=== PATIENT | female | born 1995 | race Caucasian/White ===

== ENCOUNTER → 2020-08-24 | Outpatient (CLI) | payer BC ==
--- NOTE | 2020-08-25 09:24 | US ---
EXAMINATION TYPE: US OB >= 14 wk fetus DATE OF EXAM: 08/24/2020 COMPARISON: None CLINICAL HISTORY: O36.63X0 Maternal care for excessive growth,Growth. TECHNIQUE: Transabdominal (TA) GESTATIONAL AGE / DATING Physician Established: (36 weeks/2 days) EDC: 09/19/2020 Dates by Current Scan: (36 weeks/5 days) EDC: 09/16/2020 Beta HCG (if available): Not available at this time SURVEY IUP: Single PLACENTA: Posterior PREVIA: No Previa AMBROSE: 15.6 cm Normal CERVICAL LENGTH (transabdominal: norm > 3.0cm): 3.0 cm BIOMETRY PRESENTATION: Vertex BPD: 9.1 cm 37 weeks / 0 days HC: 32.9 cm 37 weeks / 3 days AC: 32.4 cm 36 weeks / 3 days FL: 7.0 cm 36 weeks / 0 days ESTIMATED WEIGHT IN GRAMS: 2926 grams ESTIMATED WEIGHT IN LBS/OZ: 6 lbs. 7 oz. WEIGHT PERCENTAGE BASED ON ESTABLISHED DATES: 56% HC/AC: 1.0 Normal FL/AC: 22% Normal HEART RATE: 150 bpm RHYTHM: Normal Single live IUP measuring 36 weeks 5 days. IMPRESSION: 1. Single images and gestation estimated at 36 weeks 5 days gestation based on current ultrasound leslie surements. Cardiac activity measures 150 bpm. 2. Estimated weight is [address] the fetus in the 56th percentile. 3. Estimated date of confinement based on current measurements is 09/16/2020. Correlate this with the physician established EDC of 09/19/2020.
== END | disposition home or self-care (01) ==
LOC: RADUSWWP 15:38
PROVIDERS: ATTEND Obstetrics & Gynecology
DX: O36.63X0 Maternal care for excessive fetal growth, third trimester, not applicable or unspecified (principal); Z3A.36 36 weeks gestation of pregnancy
CPT/HCPCS: 76805

== ENCOUNTER 2020-09-13 22:18 | Inpatient (IN) | payer BC ==
[2020-09-13] MEDS ORDERED: METHYLERGONOVINE 0.2 MG/ML 1 ML AMP IM PRN (23:01)
[2020-09-13] MEDS ORDERED: LIDOCAINE 0.5% (PF) 5 MG/ML (50 ML SDV) SQ PRN (23:01)
[2020-09-13] MEDS ORDERED: CARBOPROST TROMETHAMINE 250 MCG/ML 1 ML AMP IM PRN (23:01)
[2020-09-13] MEDS ORDERED: OXYTOCIN 10 UNIT/ML 1 ML VIAL IM PRN (23:01)
[2020-09-13] MEDS ORDERED: TERBUTALINE 1 MG/ML VIAL SQ PRN (23:01)
[2020-09-13] MEDS: LACTATED RINGERS 1,000 ML IV SCH (23:10)
[2020-09-13 23:22] LABS: Basophils % (A) 0 %; Eosinophils # (A) 0.1 k/uL (0-0.7); Eosinophils % (A) 1 %; HCT 31.3 % (34.0-46.0); HGB 10.5 gm/dL (11.4-16.0); Lymphocytes # (A) 1.5 k/uL (1.0-4.8); Lymphocytes % (A) 16 %; MCH 28.5 pg (25.0-35.0); MCHC 33.5 g/dL (31.0-37.0); MCV 85.2 fL (80.0-100.0); Mean Platelet Volume 10.6; Monocytes # (A) 0.6 k/uL (0-1.0); Monocytes % (A) 6 %; Neutrophils # (A) 6.7 k/uL (1.3-7.7); Neutrophils % (A) 73 %; Platelet Count 129 k/uL (150-450); RBC 3.68 m/uL (3.80-5.40); RDW 13.4 % (11.5-15.5); WBC 9.1 k/uL (3.8-10.6)
--- NOTE | 2020-09-13 23:38 | P.HPOB ---
History of Present Illness H&P Date: 09/13/20 Chief Complaint: Contractions This patient is a 25-year-old 4 para 1 female estimated date of confinement 09/19/2020 estimated gestational age 39 and one sevenths weeks who presents to labor and delivery with complaints of contractions began earlier today. Patient's care is per Dr. Ibarra and is complicated by heavy daily substance abuse (marijuana). Patient transferred care at approximately 34 weeks. Her previous physician had sent her to maternal- medicine due to the amount of marijuana she was smoking on a daily basis. MFM evaluation there was negative for anatomical defects. Patient was counseled to discontinue marijuana use but has continued to use it daily through the entirety of the . Patient otherwise appears to be otherwise uncomplicated. Review of Systems Genitourinary: Reports Menstruation: Reports amenorrhea Past Medical History Past Medical History: No Reported History History of Any Multi-Drug Resistant Organisms: None Reported Additional Past Surgical History / Comment(s): LEEP excision of the cervix July 2019 Past Anesthesia/Blood Transfusion Reactions: No Reported Reaction Past Psychological History: Bipolar, Depression Smoking Status: Never smoker Past Alcohol Use History: None Reported Past Drug Use History: Marijuana Medications and Allergies Allergies Allergy/AdvReac Type Severity Reaction Status Date / Time fluoxetine [From Prozac] Allergy Rash/Hives Verified 09/13/20 22:32 ibuprofen Allergy Rash/Hives Verified 09/13/20 22:32 Exam Intake and Output 09/13/20 09/13/20 09/14/20 14:59 22:59 06:59 Other: Weight 85.729 kg - OBG Physical Exam Abdomen: bowel sounds normal, no diffuse tenderness, no bruit present, no guarding noted, no hepatomegaly, no splenomegaly, no mass Vulva: both: normal Cervix: no lesion (Cervix is 4 completely effaced -2 station.), no discharge Uterus: enlarged Results blood work shows she is A positive, rubella immune, hepatitis B negative, RPR nonreactive, HIV negative, Glucola was 85, level III ultrasound was normal, B strep was negative, most recent ultrasound done approximately 3 weeks ago showed estimated weight at 6 lbs. 7 oz. Result Diagrams: 09/13/20 23:05 Abnormal Lab Results - Last 24 Hours (Table) 09/13/20 Range/Units 23:05 RBC 3.68 L (3.80-5.40) m/uL Hgb 10.5 L (11.4-16.0) gm/dL Hct 31.3 L (34.0-46.0) % Plt Count 129 L (150-450) k/uL Assessment and Plan Assessment: This is a 25-year-old 4 para 1 female estimated gestational age 39 and one sevenths weeks who presents to labor and delivery in active labor. Patient's daily heavy user of marijuana. Plan is anticipate vaginal delivery and will need a social secretary consult . (1) 39 weeks gestation of Current Visit: Yes Status: Acute Code(s): Z3A.39 - 39 WEEKS GESTATION OF SNOMED Code(s): 00756617 (2) Substance abuse affecting in third trimester, antepartum Current Visit: Yes Status: Chronic Code(s): O99.323 - DRUG USE COMPLICATING , THIRD TRIMESTER SNOMED Code(s): 12580205
[2020-09-13 23:49] LABS: Amphetamine Screen,Urine Not Detected (NotDetected); Benzodiazepines Screen,Urine Not Detected (NotDetected); Cocaine Screen,Urine Not Detected (NotDetected); Opiate Screen,Urine Not Detected (NotDetected); Phencyclidine Screen,Urine Not Detected (NotDetected)
[2020-09-13 23:50] LABS: Barbiturate Screen,Urine Not Detected (NotDetected); Methadone Screen, Urine Not Detected (NotDetected); Oxycodone Screen, Urine Not Detected (NotDetected); Tricyclic Antidepressant,Urine Not Detected (NotDetected); Urn Cannabinoid Scrn Detected (NotDetected)
[2020-09-13] MEDS ORDERED: SODIUM CHLORIDE 0.9% 100 ML BAG ONE (23:53)
[2020-09-13] MEDS ORDERED: fentaNYL (PF) 50 MCG/ML 5 ML AMP ONE (23:53)
[2020-09-13] MEDS ORDERED: ROPIVACAINE 5MG/ML 20ML VIAL ONE (23:53)
[2020-09-14] MEDS: LACTATED RINGERS 1,000 ML IV SCH (00:25)
--- NOTE | 2020-09-14 02:13 | P.PROBDLV ---
Vaginal Delivery Note - . Vaginal Delivery Note: Normal spontaneous vaginal delivery viable male infant Apgars 9 and 9 delivery time was 0200 hours. Please see dictated H&P for intimate details of this patient's admission. Brief summary this is a 25-year-old 4 para 1 female 39 and one sevenths weeks gestation is admitted to labor and delivery for complaints of contractions. On admission patient is 4 cm dilated and completely effaced. Patient is artificial rupture membranes for clear fluid. She does request an epidural for pain control and this is given. Patient quickly progresses thereafter gets to complete. Patient pushes the head to the perineum posterior perineum was supported. We have controlled delivery of the infant's head over the intact perineum. The placenta is straight occiput anterior presentation. Mouth and nares are bulb suctioned. There is no evidence of nuchal cord. Patient continues to push uncontrollably and delivers rest of this 's body. This is a vigorous, viable male Apgars are 9 and 9 delivery time is 0200 hours. After delivery of the the umbilical cord is doubly clamped and cut. It appears to be trivascular. The placenta is then spontaneously delivered intact. Inspection of perineum shows no lacerations except for a superficial left periurethral laceration that does not require repair. Infant and mother are stable in delivery room. There are no complications. All counts correct 3. donor services team leader consultation will be obtained.
[2020-09-14] MEDS ORDERED: ZOLPIDEM 5 MG TAB PO PRN (02:15)
[2020-09-14] MEDS ORDERED: diphenhydrAMINE 25 MG CAP PO PRN (02:15)
[2020-09-14] MEDS ORDERED: SIMETHICONE 80 MG CHEWABLE PO PRN (02:15)
[2020-09-14] MEDS ORDERED: HYDROCORTISONE 2.5% RECTAL CREAM 30 GM TUBE RECTAL PRN (02:15)
[2020-09-14] MEDS ORDERED: diphenhydrAMINE 50 MG/ML 1 ML VIAL IVP PRN (02:15)
[2020-09-14] MEDS ORDERED: BENZOCAINE/MENTHOL SPRAY 1 GM/SPRAY AEROSOL TOPICAL PRN (02:15)
[2020-09-14] MEDS ORDERED: LANOLIN CREAM 5 GM TUBE TOPICAL PRN (02:15)
[2020-09-14] MEDS ORDERED: IBUPROFEN 600 MG TAB PO SCH (02:15)
[2020-09-14] MEDS ORDERED: OXYTOCIN 30 UNITS/500 ML NS 30 UNIT in SALINE 1 500ML.BAG IV SCH (02:15)
[2020-09-14] MEDS ORDERED: bisacodyL 10 MG SUPP RECTAL PRN (02:15)
[2020-09-14] MEDS: ACETAMINOPHEN TAB 325 MG TAB PO PRN ×2 (05:41→20:47)
[2020-09-14] MEDS: SENNOSIDES-DOCUSATE SODIUM 1 EACH TAB PO SCH ×2 (09:15→20:47)
[2020-09-15] MEDS: ACETAMINOPHEN TAB 325 MG TAB PO PRN (07:24)
[2020-09-15] MEDS: SENNOSIDES-DOCUSATE SODIUM 1 EACH TAB PO SCH (07:25)
--- NOTE | 2020-09-15 07:53 | P.DS ---
Providers Date of admission: 09/13/20 22:49 Expected date of discharge: 09/15/20 Attending physician: Timoteo Ibarar Primary care physician: Stated None Hospital Course: Patient is doing very well day 1. She is ambulating, voiding and she is tolerating her diet. She voices no other complaints. Vital signs are stable and afebrile. Heart regular, lungs clear, extremities are without pain. Abdomen is soft, uterus is firm, and lochia is reported be light. Assessment day 1. Plan discharged home follow up with me in 6 weeks. Discharge instructions were thoroughly reviewed and all other questions are answered for her prior to her discharge. Patient Condition at Discharge: Good Plan - Discharge Summary Follow up Appointment(s)/Referral(s): Timoteo Ibarra DO [Doctor of Osteopathic Medicine] - 6 Weeks Activity/Diet/Wound Care/Special Instructions: Lifting, limit stairs and driving, and pelvic rest. If any high temperatures, heavy bleeding, or severe pain call my office Discharge Disposition: HOME SELF-CARE
[2020-09-15 08:25] LABS: Basophils # (A) 0.1 k/uL (0-0.2); Basophils % (A) 0 %; Eosinophils # (A) 0.2 k/uL (0-0.7); Eosinophils % (A) 2 %; HCT 36.9 % (34.0-46.0); HGB 11.6 gm/dL (11.4-16.0); Lymphocytes # (A) 2.4 k/uL (1.0-4.8); Lymphocytes % (A) 21 %; MCH 27.7 pg (25.0-35.0); MCHC 31.6 g/dL (31.0-37.0); MCV 87.6 fL (80.0-100.0); Mean Platelet Volume 8.9; Monocytes # (A) 0.8 k/uL (0-1.0); Monocytes % (A) 7 %; Neutrophils # (A) 8.2 k/uL (1.3-7.7); Neutrophils % (A) 69 %; Platelet Count 215 k/uL (150-450); RBC 4.21 m/uL (3.80-5.40); RDW 13.2 % (11.5-15.5); WBC 11.9 k/uL (3.8-10.6)
[2020-09-15 09:17] VITALS: BP 128/73; PULSE 65; RESP 18; TEMP 97.6
== END 2020-09-15 10:35 | disposition home or self-care (01) | DRG 807 ==
LOC: FBPOP 22:18 → 4FBP 22:49
PROVIDERS: ADMIT Obstetrics & Gynecology; ATTEND Obstetrics & Gynecology
PROC: 10E0XZZ Delivery of Products of Conception, External Approach (ICD-10-PCS; principal; 2020-09-14)
PROC: 10907ZC Drainage of Amniotic Fluid, Therapeutic from Products of Conception, Via Natural or Artificial Opening (ICD-10-PCS; 2020-09-14)
DX: O99.324 Drug use complicating childbirth (principal); Z37.0 Single live birth; F12.10 Cannabis abuse, uncomplicated; O99.344 Other mental disorders complicating childbirth; F31.9 Bipolar disorder, unspecified; Z3A.39 39 weeks gestation of pregnancy; O71.82 Other specified trauma to perineum and vulva
CPT/HCPCS: 59025; 80306; 85025; 86850; 86900; 86901; 88307; 99213

== ENCOUNTER 2022-10-28 06:00 | Inpatient (IN) | payer BC, OTHER ==
[2022-10-28] MEDS ORDERED: LIDOCAINE 0.5% (PF) 5 MG/ML (50 ML SDV) SQ PRN (06:26)
[2022-10-28] MEDS ORDERED: TERBUTALINE 1 MG/ML VIAL SQ PRN (06:26)
[2022-10-28] MEDS ORDERED: OXYTOCIN 10 UNIT/ML 1 ML VIAL IM PRN (06:26)
[2022-10-28] MEDS ORDERED: CARBOPROST TROMETHAMINE 250 MCG/ML 1 ML AMP IM PRN (06:26)
[2022-10-28] MEDS ORDERED: miSOPROStoL 200 MCG TAB PO PRN (06:26)
[2022-10-28] MEDS ORDERED: METHYLERGONOVINE 0.2 MG/ML 1 ML AMP IM PRN (06:26)
[2022-10-28] MEDS ORDERED: TRANEXAMIC ACID IN NACL,ISO-OS 1,000 MG in EMPTY BAG 1 BAG IV PRN (06:26)
[2022-10-28] MEDS ORDERED: OXYTOCIN 30 UNITS/500 ML NS 30 UNIT in SALINE 1 500ML.BAG IV SCH (06:30)
[2022-10-28] MEDS: LACTATED RINGERS 1,000 ML IV SCH ×2 (06:39→14:32)
[2022-10-28 07:05] LABS: Basophils # (A) 0.1 k/uL (0-0.2); Basophils % (A) 0 %; Eosinophils # (A) 0.2 k/uL (0-0.7); Eosinophils % (A) 2 %; HGB 9.1 gm/dL (11.4-16.0); Hypochromasia Slight; Lymphocytes % (A) 19 %; MCH 25.4 pg (25.0-35.0); MCHC 32.4 g/dL (31.0-37.0); MCV 78.4 fL (80.0-100.0); Mean Platelet Volume 7.8; Monocytes % (A) 9 %; Neutrophils # (A) 7.2 k/uL (1.3-7.7); Neutrophils % (A) 67 %; Platelet Count 301 k/uL (150-450); Poikilocytosis Slight; RBC 3.57 m/uL (3.80-5.40); RDW 14.4 % (11.5-15.5); WBC 10.7 k/uL (3.8-10.6)
--- NOTE | 2022-10-28 07:53 | P.HPOB ---
History of Present Illness H&P Date: 10/28/22 Chief Complaint: induction of labor 27-year-old presents at 39 weeks and 2 days for induction of labor. Her cervix is 2 cm dilated, 70% effaced, and -2 station. She is errol irregularly. heart tones 135 with moderate variability and reactive. Review of Systems All systems: negative Constitutional: Denies chills, Denies fever Eyes: denies blurred vision, denies pain Ears, nose, mouth and throat: Denies headache, Denies sore throat Cardiovascular: Denies chest pain, Denies shortness of breath Respiratory: Denies cough Gastrointestinal: Denies abdominal pain, Denies diarrhea, Denies nausea, Denies vomiting Genitourinary: Denies dysuria, Denies hematuria Musculoskeletal: Denies myalgias Integumentary: Denies pruritus, Denies rash Neurological: Denies numbness, Denies weakness Psychiatric: Denies anxiety, Denies depression Endocrine: Denies fatigue, Denies weight change Past Medical History Past Medical History: No Reported History Additional Past Medical History / Comment(s): She has had 2 previous vaginal deliveries. History of Any Multi-Drug Resistant Organisms: None Reported Additional Past Surgical History / Comment(s): LEEP excision of the cervix July 2019 Past Anesthesia/Blood Transfusion Reactions: No Reported Reaction Past Psychological History: Bipolar, Depression Smoking Status: Never smoker Past Alcohol Use History: None Reported Past Drug Use History: None Reported - Past Family History Father Family Medical History: No Reported History Medications and Allergies Home Medications Medication Instructions Recorded Confirmed Type Albuterol Inhaler [Ventolin Hfa 1 - 2 puff INHALATION Q6H PRN 10/28/22 10/28/22 History Inhaler] Famotidine [Pepcid] 20 mg PO DAILY 10/28/22 10/28/22 History Omeprazole 40 mg PO DAILY 10/28/22 10/28/22 History Pediatric Multivit No.203/Iron 18 mg PO DAILY 10/28/22 10/28/22 History [Flintstones with Iron Tab Chew] Allergies Allergy/AdvReac Type Severity Reaction Status Date / Time fluoxetine [From Prozac] Allergy Rash/Hives Verified 10/28/22 06:25 ibuprofen Allergy Rash/Hives Verified 10/28/22 06:25 naproxen Allergy Rash/Hives Verified 10/28/22 06:25 Exam Osteopathic Statement: *. No significant issues noted on an osteopathic structural exam other than those noted in the History and Physical/Consult. Vital Signs Temp Pulse Resp BP Pulse Ox 10/28/22 06:47 96.9 F L 125 H 16 128/72 97 Intake and Output 10/27/22 10/28/22 10/28/22 22:59 06:59 14:59 Other: Weight 97.069 kg Heart: Regular rate and rhythm Lungs: Clear to auscultation bilaterally Abdomen: Soft, nontender Extremities: Negative Homans sign Results Result Diagrams: 10/28/22 06:32 Abnormal Lab Results - Last 24 Hours (Table) 10/28/22 Range/Units 06:32 WBC 10.7 H (3.8-10.6) k/uL RBC 3.57 L (3.80-5.40) m/uL Hgb 9.1 L (11.4-16.0) gm/dL Hct 28.0 L (34.0-46.0) % MCV 78.4 L (80.0-100.0) fL Assessment and Plan (1) Encounter for induction of labor Current Visit: Yes Status: Acute Code(s): Z34.90 - ENCNTR FOR SUPRVSN OF NORMAL , UNSP, UNSP TRIMESTER SNOMED Code(s): 708240459 Plan: 1. Induction of labor with amniotomy and Pitocin 2. Anticipate normal vaginal delivery
[2022-10-28] MEDS ORDERED: fentaNYL (PF) 50 MCG/ML 5 ML AMP ONE (10:26)
[2022-10-28] MEDS ORDERED: ROPIVACAINE 5 MG/ML 20 ML AMPULE ONE (10:26)
[2022-10-28] MEDS ORDERED: SODIUM CHLORIDE 0.9% 100 ML BAG ONE (10:26)
[2022-10-28] MEDS ORDERED: SIMETHICONE 80 MG CHEWABLE PO PRN (14:35)
[2022-10-28] MEDS ORDERED: BENZOCAINE/MENTHOL SPRAY 1 GM/SPRAY AEROSOL TOPICAL PRN (14:35)
[2022-10-28] MEDS ORDERED: ZOLPIDEM 5 MG TAB PO PRN (14:35)
[2022-10-28] MEDS ORDERED: diphenhydrAMINE 50 MG/ML 1 ML VIAL IVP PRN ×2 (14:35)
[2022-10-28] MEDS ORDERED: HYDROCORTISONE 2.5% RECTAL CREAM 30 GM TUBE RECTAL PRN (14:35)
[2022-10-28] MEDS ORDERED: diphenhydrAMINE 50 MG CAP PO PRN (14:35)
[2022-10-28] MEDS ORDERED: diphenhydrAMINE 25 MG CAP PO PRN (14:35)
[2022-10-28] MEDS ORDERED: LANOLIN CREAM 5 GM TUBE TOPICAL PRN (14:35)
[2022-10-28] MEDS: ACETAMINOPHEN TAB 325 MG TAB PO PRN ×2 (14:52→20:02)
--- NOTE | 2022-10-28 16:57 | P.PROBDLV ---
Vaginal Delivery Note - . Vaginal Delivery Note: 27-year-old presents at 39 weeks and 2 days for induction of labor. Her cervix is 2 cm dilated, 70% effaced, and -2 station. She is errol irregularly. heart tones 135 with moderate variability and reactive. Pitocin was started. Amniotomy performed at 7:30 AM and clear fluid noted. When she was uncomfortable she did get an epidural. Her cervix was completely dilated at 1359. She pushed, delivered a viable female infant over intact perineum under epidural anesthesia at 1404. Head delivered OA, anterior shoulder delivered gentle downward guidance for by posterior shoulder and rest of body. Nose and mouth bulb suctioned, cord clamped and cut, infant placed mother's abdomen. Apgars 9, 9, weight 7 lbs. 14 oz. Placenta delivered spontaneously, intact with three-vessel cord at 1408. Vagina, cervix, perineum inspected. First-degree midline laceration repaired with 3-0 Vicryl. Estimated blood loss 150 mL. Mother and baby in stable condition.
[2022-10-28] MEDS: SENNOSIDES-DOCUSATE SODIUM 1 EACH TAB PO SCH (20:02)
[2022-10-28 23:51] VITALS: RESP 16
[2022-10-29] MEDS: ACETAMINOPHEN TAB 325 MG TAB PO PRN ×3 (01:27→12:18)
[2022-10-29] MEDS: SENNOSIDES-DOCUSATE SODIUM 1 EACH TAB PO SCH (09:13)
--- NOTE | 2022-10-29 09:34 | P.DS ---
Providers Date of admission: 10/28/22 06:05 Expected date of discharge: 10/29/22 Attending physician: Tamara Addison Primary care physician: Stated None - Discharge Diagnosis(es) (1) Encounter for induction of labor Current Visit: Yes Status: Resolved (2) Status post normal vaginal delivery Current Visit: Yes Status: Acute Hospital Course: Patient presented for induction of labor. She underwent a normal vaginal delivery. course uncomplicated. She denies nausea, vomiting, chest pain, shortness of breath or calf pain. Patient will be discharged home day #1 in stable condition to follow-up with me in 6 weeks. Plan - Discharge Summary New Discharge Prescriptions: No Action Omeprazole 40 mg PO DAILY Albuterol Inhaler [Ventolin Hfa Inhaler] 1 - 2 puff INHALATION Q6H PRN PRN Reason: Shortness Of Breath Pediatric Multivit No.203/Iron [Flintstones with Iron Tab Chew] 18 mg PO DAILY Famotidine [Pepcid] 20 mg PO DAILY Discharge Medication List Albuterol Inhaler [Ventolin Hfa Inhaler] 1 - 2 puff INHALATION Q6H PRN 10/28/22 [History] Famotidine [Pepcid] 20 mg PO DAILY 10/28/22 [History] Omeprazole 40 mg PO DAILY 10/28/22 [History] Pediatric Multivit No.203/Iron [Flintstones with Iron Tab Chew] 18 mg PO DAILY 10/28/22 [History] Follow up Appointment(s)/Referral(s): Tamara Addison DO [Doctor of Osteopathic Medicine] - 12/12/22 10:45 am Discharge Disposition: HOME SELF-CARE
[2022-10-29 12:52] VITALS: BP 119/78; PULSE 105; TEMP 98.4
== END 2022-10-29 15:55 | disposition home or self-care (01) | DRG 560 ==
LOC: 4FBP 06:05
PROVIDERS: ADMIT Obstetrics & Gynecology; ATTEND Obstetrics & Gynecology
PROC: 10E0XZZ Delivery of Products of Conception, External Approach (ICD-10-PCS; principal; 2022-10-28)
PROC: 0HQ9XZZ Repair Perineum Skin, External Approach (ICD-10-PCS; 2022-10-28)
PROC: 10907ZC Drainage of Amniotic Fluid, Therapeutic from Products of Conception, Via Natural or Artificial Opening (ICD-10-PCS; 2022-10-28)
PROC: 3E033VJ Introduction of Other Hormone into Peripheral Vein, Percutaneous Approach (ICD-10-PCS; 2022-10-28)
DX: O70.0 First degree perineal laceration during delivery (principal); Z37.0 Single live birth; Z3A.39 39 weeks gestation of pregnancy
CPT/HCPCS: 85025; 86850; 86900; 86901

== ENCOUNTER → 2023-06-05 | Outpatient (CLI) | payer OTHER ==
[2023-06-05 14:14] LABS: INR 0.9 (<1.2); Partial Thromboplastin Time 25.4 sec (22.0-30.0); Prothrombin Time 10.5 sec (10.0-12.5)
[2023-06-05 17:07] LABS: % Iron Saturation 22.07 (12.00-45.00); ALT 16 U/L (8-44); AST 12 U/L (13-35); Albumin 4.6 g/dL (3.8-4.9); Albumin/Globulin Ratio 1.84 Ratio (1.60-3.17); Alkaline Phosphatase 78 U/L (41-126); BUN/Creat Ratio 15.86 Ratio (12.00-20.00); Blood Urea Nitrogen 11.1 mg/dL (9.0-27.0); Calcium 9.4 mg/dL (8.7-10.3); Carbon Dioxide 21.4 mmol/L (21.6-31.8); Chloride 104 mmol/L (96-109); Chol/HDL Ratio 4.03 Ratio; Ferritin 16.8 ng/mL (10.0-291.0); Globulin 2.5 g/dL (1.6-3.3); Glucose 110 mg/dL (70-110); Iron 81 UG/DL (50-170); LDL Cholesterol,Calculated 123.5 mg/dL (0.0-131.0); Magnesium 2.1 mg/dL (1.5-2.4); Phosphorus 3.4 mg/dL (2.4-5.1); Potassium 4.6 mmol/L (3.5-5.5); Sodium 139 mmol/L (135-145); Total Bilirubin 0.2 mg/dL (0.3-1.2); Total Iron Binding Capacity 367 UG/DL (228-460); Total Protein 7.1 g/dL (6.2-8.2)
[2023-06-05 17:30] LABS: Prealbumin 20.8 mg/dL (18.0-42.0)
[2023-06-06 12:12] LABS: Zinc, Serum 76 ug/dL (60-130)
[2023-06-07 06:24] LABS: Vitamin A 44 ug/dL (38-106)
[2023-06-07 07:19] LABS: Vit B1(Thiamine) 56 ug/L (38-122)
== END | disposition home or self-care (01) ==
LOC: LABWHC1 12:24
PROVIDERS: ATTEND Surgery Plastic and Reconstructive Surgery
DX: E89.1 Postprocedural hypoinsulinemia (principal); E66.01 Morbid (severe) obesity due to excess calories; D50.8 Other iron deficiency anemias; E44.0 Moderate protein-calorie malnutrition; E55.9 Vitamin D deficiency, unspecified; K91.2 Postsurgical malabsorption, not elsewhere classified; E44.1 Mild protein-calorie malnutrition; E45 Retarded development following protein-calorie malnutrition; K74.1 Hepatic sclerosis; N19 Unspecified kidney failure; T56.894A Toxic effect of other metals, undetermined, initial encounter; R94.31 Abnormal electrocardiogram [ECG] [EKG]; R00.0 Tachycardia, unspecified
CPT/HCPCS: 84255; 84134; 84425; 80061; 80053; 82607; 82728; 82525; 82746; 83540; 83550; 83735; 84100; 84443; 84590; 84630; 85027; 85610; 85730; 82306; 83970; 83036; 80307; 93005; 36415; G0480; 80323

== ENCOUNTER → 2023-06-09 | Outpatient (CLI) | payer OTHER ==
[2023-06-10 02:10] LABS: HCT 42.3 % (37.2-46.3); HGB 13.6 g/dL (12.0-15.0); MCH 29.2 pg (27.0-32.0); MCHC 32.2 g/dL (32.0-37.0); MCV 90.8 FL (80.0-97.0); Mean Platelet Volume 9.8 FL (9.5-12.2); NRBC Per 100 WBC 0 X 10*3/uL (0.00-0.01); Platelet Count 319 X 10*3/uL (140-440); RBC 4.66 X 10*6/uL (4.10-5.20); RDW 13.7 % (11.5-14.5); WBC 10.17 X 10*3/uL (4.50-10.00)
== END | disposition home or self-care (01) ==
LOC: LABWHC1 16:05
PROVIDERS: ATTEND Surgery Plastic and Reconstructive Surgery
DX: Z00.00 Encounter for general adult medical examination without abnormal findings (principal)
CPT/HCPCS: 36415; 85027

== ENCOUNTER → 2023-07-05 | Day surgery (SDC) | payer OTHER ==
[2023-06-29 12:37] VITALS: BMI 35.8
[~2023-07-05] MED LIST: LACTATED RINGERS 1,000 ML IV SCH; LIDOCAINE 1% (10MG/ML) FOR IV START INTRADERMA PRN; LIDOCAINE 1% INJ 10MG/ML (20 ML MDV) ONE; PROPOFOL 10 MG/ML 20 ML VIAL IV ONE
--- NOTE | 2023-07-05 07:53 | P.GSHP ---
History of Present Illness H&P Date: 07/05/23 CHIEF COMPLAINT: GERD HISTORY OF PRESENT ILLNESS: The patient is a 28-year-old female who presents reports gastroesophageal reflux disease. Upper endoscopy was offered for further evaluation and management. PAST MEDICAL HISTORY: Please see list. PAST SURGICAL HISTORY: Please see list. MEDICATIONS: Please see list. ALLERGIES: Please see list. SOCIAL HISTORY: No illicit drug use FAMILY HISTORY: No reports of Crohn disease or ulcerative colitis. REVIEW OF ORGAN SYSTEMS: CONSTITUTIONAL: No reports of fevers or chills. GI: Denies any blood in stools or constipation. PHYSICAL EXAM: VITAL SIGNS: Stable GENERAL: Well-developed and pleasant in no acute distress. HEENT: No scleral icterus. Extraocular movements grossly intact. Moist buccal mucosa. NECK: Supple without lymphadenopathy. CHEST: Unlabored respirations. Equal bilateral excursions. CARDIOVASCULAR: Regular rate and rhythm. Distal 2+ pulses. ABDOMEN: Soft, nondistended. MUSCULOSKELETAL: No clubbing, cyanosis, or edema. ASSESSMENT: 1. Gastroesophageal reflux disease PLAN: 1. Recommend proceeding with an upper endoscopy Past Medical History Past Medical History: Asthma, GERD/Reflux Additional Past Medical History / Comment(s): severe gerd. planning bariatric surgery, abnormal ekg done on 06-05-[address] sow-scheduled echo jul 29, hx of tachycardia at age 18,She has had 3 previous vaginal deliveries. seasonal allergies, mild asthma. History of Any Multi-Drug Resistant Organisms: None Reported Past Surgical History: Cholecystectomy Additional Past Surgical History / Comment(s): LEEP excision of the cervix July 2019 Past Anesthesia/Blood Transfusion Reactions: No Reported Reaction Smoking Status: Current every day smoker, Vaper - Past Family History Father History Unknown: Yes Family Medical History: No Reported History Additional Family Medical History / Comment(s): Barrette's esophagus Mother Family Medical History: No Reported History Medications and Allergies Home Medications Medication Instructions Recorded Confirmed Type Albuterol Inhaler [Ventolin Hfa 1 - 2 puff INHALATION Q6H PRN 10/28/22 06/29/23 History Inhaler] Omeprazole 40 mg PO DAILY PRN 10/28/22 06/29/23 History Ergocalciferol [Vitamin D2 (1250 50,000 unit PO WEEKLY 06/08/23 06/29/23 History Mcg = 00833 Iu)] Folic Acid 0.8 mg PO DAILY 06/08/23 06/29/23 History Allergies Allergy/AdvReac Type Severity Reaction Status Date / Time fluoxetine [[facility]] Allergy Rash/Hives Verified 06/29/23 12:51 ibuprofen Allergy Rash/Hives Verified 06/29/23 12:51 naproxen Allergy Rash/Hives Verified 06/29/23 12:51
[2023-07-05 11:01] VITALS: RESP 16; TEMP 96.9
--- NOTE | 2023-07-05 11:11 | P.PCN ---
Date of Procedure: 07/05/23 Description of Procedure: PREOPERATIVE DIAGNOSIS: Gastroesophageal reflux disease. Morbid obesity. POSTOPERATIVE DIAGNOSIS: Gastroesophageal reflux disease. Morbid obesity. Gastritis. OPERATION: Esophagogastroduodenoscopy with biopsies along the esophagus, antrum and duodenum SURGEON: Shannan Huang MD ANESTHESIA: MAC. INDICATIONS: The patient is a 28-year-old female who presents with reflux disease. Benefits and risks of the procedure were described. Informed consent was obtained. DESCRIPTION: The patient was brought into the endoscopy suite and laid in the left lateral decubitus position. An Olympus gastroscope was passed along the posterior oropharynx down to the distal esophagus where the squamocolumnar junction was encountered at 36 cm from the incisors. The stomach was entered and no bile reflux was found. Additional findings are listed below. Biopsies with cold forceps were obtained of the antrum. The first through third portion of the duodenum was examined. Retroflexion of the scope confirmed Hill grade 3 lower esophageal valve. The squamocolumnar junction demonstrated LA grade C erosive esophagitis. The stomach was desufflated. The patient tolerated the procedure well. FINDINGS: Squamocolumnar junction 36 cm from the incisors. Diaphragmatic hiatus at 36 cm. Hill grade 3 lower esophageal valve. LA grade C erosive esophagitis. Biopsies obtained Biopsies obtained of the duodenum. Chronic gastritis with biopsies obtained. RECOMMENDATIONS: Upper endoscopy as needed. Plan - Discharge Summary Discharge Rx Participant: No New Discharge Prescriptions: Continue Omeprazole 40 mg PO DAILY PRN PRN Reason: Heartburn Albuterol Inhaler [Ventolin Hfa Inhaler] 1 - 2 puff INHALATION Q6H PRN PRN Reason: Shortness Of Breath Folic Acid 0.8 mg PO DAILY Ergocalciferol [Vitamin D2 (1250 Mcg = 64746 Iu)] 50,000 unit PO WEEKLY Discharge Medication List Albuterol Inhaler [Ventolin Hfa Inhaler] 1 - 2 puff INHALATION Q6H PRN 10/28/22 [History] Omeprazole 40 mg PO DAILY PRN 10/28/22 [History] Ergocalciferol [Vitamin D2 (1250 Mcg = 64482 Iu)] 50,000 unit PO WEEKLY 06/08/23 [History] Folic Acid 0.8 mg PO DAILY 06/08/23 [History] Follow [facility]ment(s[facility] [facility] [place] [place] Patient Instructions/Handouts: GERD (Gastroesophageal Reflux Disease) (DC) Discharge Disposition: HOME SELF-CARE
[2023-07-05 11:27] VITALS: BP 100/58; PULSE 77
== END | disposition home or self-care (01) ==
LOC: ORWHC2ENDO 09:28
PROVIDERS: ATTEND Surgery Plastic and Reconstructive Surgery
DX: K29.50 Unspecified chronic gastritis without bleeding (principal); K21.00 Gastro-esophageal reflux disease with esophagitis, without bleeding; E66.01 Morbid (severe) obesity due to excess calories; J45.909 Unspecified asthma, uncomplicated; F17.290 Nicotine dependence, other tobacco product, uncomplicated; Z90.49 Acquired absence of other specified parts of digestive tract; Z88.6 Allergy status to analgesic agent; Z88.8 Allergy status to other drugs, medicaments and biological substances
CPT/HCPCS: 81025; 88305; 43239; J2001; J2704

== ENCOUNTER → 2023-07-19 | Outpatient (CLI) | payer BC, OTHER ==
[2023-07-19 15:50] VITALS: BP 121/85; PULSE 97; TEMP 98.2; BMI 35.8
--- NOTE | 2023-07-19 16:14 | P.BASOAP ---
Subjective Progress Note Date: 07/19/23 DATE OF SERVICE: 07/19/23 CHIEF COMPLAINT: Morbid obesity HISTORY OF PRESENT ILLNESS: Elana Urena is a 28-year-old female who comes with lifelong morbid obesity. She comes in looking into the gastric bypass. She continues to smoke. She has gastroesophageal reflux disease. She is undergoing medical supervised weight loss. She is also undergoing cardiac risk assessment. At height of 5 feet 3.75 inches, her ideal body weight is 140 pounds. She comes in 219 pounds. Her body mass index is 38.0. She is 79 pounds overweight. PAST MEDICAL HISTORY: 1. Morbid obesity due to excess calories 2. Body mass index of 35.8 3. Asthma 4. Gastroesophageal reflux disease PAST SURGICAL HISTORY: 1. Cholecystectomy 2. LEEP excision HOME MEDICATIONS: Home Medications Medication Instructions Recorded Confirmed Albuterol Inhaler [Ventolin Hfa 1 - 2 puff INHALATION Q6H PRN 10/28/22 07/19/23 Inhaler] Omeprazole 40 mg PO BID 10/28/22 07/19/23 Ergocalciferol [Vitamin D2 (1250 50,000 unit PO WEEKLY 06/08/23 07/19/23 Mcg = 18409 Iu)] Folic Acid 0.8 mg PO DAILY 06/08/23 07/19/23 ALLERGIES: Allergies Allergy/AdvReac Type Severity Reaction Status Date / Time fluoxetine [From Prozac] Allergy Rash/Hives Verified 06/29/23 12:51 ibuprofen Allergy Rash/Hives Verified 06/29/23 12:51 naproxen Allergy Rash/Hives Verified 06/29/23 12:51 SOCIAL HISTORY:Tobacco use. FAMILY HISTORY: No family history of ulcerative colitis disease or Crohn's disease. Family history of morbid obesity. No lupus in the family. No reports of stomach. Bangura's esophagus REVIEW OF ORGAN SYSTEMS: CONSTITUTIONAL: HEENT: Denies any active troubles with vision or hearing. Has troubles with swallowing. ENDOCRINE: Has diabetes. No hypothyroidism. CARDIOVASCULAR: Past reports of palpitations or heart attacks or chest pain. Has hypertensive heart disease. RESPIRATORY: Has daytime somnolence. Has asthma. Has chronic obstructive pulmonary disease. GASTROINTESTINAL: Denies any bright red blood per rectum. No diarrhea. No constipation. Has gastroesophageal reflux disease. GENITOURINARY: Has bladder urgency. No recent blood in urine MUSCULOSKELETAL: Has lower back pain and joint pain. Has osteoarthritis of the knees. History of bilateral lower extremity edema. NEURO: No headaches. No seizure disorders. Has neuropathy. PSYCH: Has depression. No suicidal ideation. RHEUMATOLOGIC: No lupus. No rheumatoid arthritis. HEMATOLOGIC: Denies any abnormal bleeding or bruising. Past history of DVTs. On blood thinners. SKIN: No rash. No skin cancer. PHYSICAL EXAM: VITAL SIGNS: Height 5 foot 2 inches, weight 196 pounds. BMI 35.8 Vital Signs Temp 98.2 F 07/19/23 15:44 Pulse 97 07/19/23 15:44 Resp BP 121/85 07/19/23 15:44 Pulse Ox FiO2 GENERAL: Well-developed in no acute distress. HEENT: No scleral icterus. Extraocular movements grossly intact. Hears conversational speech. No nasal drainage. NECK: Supple without lymphadenopathy. CHEST: Nonlabored respirations with equal bilateral excursions. CARDIOVASCULAR: Regular rate and regular rhythm. Distal 2+ pulses. ABDOMEN: Obese, soft, nontender, nondistended. MUSCULOSKELETAL: No clubbing, cyanosis. NEURO: No focal or lateralizing signs. Cranial nerves 2 through 12 grossly within normal limits. PSYCH: Appropriate affect. Alert and oriented to person, place and time. SKIN: Good skin turgor. Well perfused. LABS: Reviewed. Urine positive for nicotine and marijuana. Folate low. Vitamin D low. WBC elevated, leukocytosis EKG: Sinus tachycardia with anterior infarct EGD FINDINGS: Squamocolumnar junction 36 cm from the incisors. Diaphragmatic hiatus at 36 cm. Hill grade 3 lower esophageal valve. LA grade C erosive esophagitis. Biopsies obtained Biopsies obtained of the duodenum. Chronic gastritis with biopsies obtained. Final Pathologic Diagnosis A. DUODENUM, BIOPSY: Benign small bowel mucosa with intact villous architecture, negative for histologic abnormality. B. GASTRIC ANTRUM, BIOPSY: Mild chronic gastritis. Helicobacter pylori organisms are not identified on routine H+E sections. C. ESOPHAGUS, BIOPSY: Mild chronic esophagitis. Intramucosal eosinophils are not identified. ASSESSMENT: 1. Morbid obesity due to excess calories 2. Body mass index of 35.8 3. Asthma 4. Gastroesophageal reflux disease 5. Leukocytosis 6. Vitamin D deficiency 7. Folate deficiency 8. Marijuana use PLAN: 1. Recommend cardiac risk assessment due to abnormal EKG 2. She is looking into the gastric bypass which she is elevated risk 3. Recommend medical risk assessment Objective - Vital Signs Vital signs: Vital Signs Temp 98.2 F 07/19/23 15:44 Pulse 97 07/19/23 15:44 Resp BP 121/85 07/19/23 15:44 Pulse Ox FiO2 Intake & Output 07/18/23 07/19/23 07/19/23 18:59 06:59 18:59 Weight 88.904 kg Assessment/Plan Plan: Date: 07/19/23 Initial Weight: 88.904 kg Initial BMI: 35.8 Current Weight: 88.904 kg Current BMI: 35.8 Type of Surgery: Total Volume in Band: Previous Volume: Volume Removed: Volume Added: Band Size:
== END ==
LOC: BARWHC3 15:07
PROVIDERS: ATTEND Surgery Plastic and Reconstructive Surgery
DX: E66.01 Morbid (severe) obesity due to excess calories (principal); J45.909 Unspecified asthma, uncomplicated; K21.9 Gastro-esophageal reflux disease without esophagitis; D72.829 Elevated white blood cell count, unspecified; E55.9 Vitamin D deficiency, unspecified; D52.9 Folate deficiency anemia, unspecified; F12.90 Cannabis use, unspecified, uncomplicated; Z68.35 Body mass index [BMI] 35.0-35.9, adult; Z79.899 Other long term (current) drug therapy; Z88.8 Allergy status to other drugs, medicaments and biological substances; Z88.6 Allergy status to analgesic agent; Z87.891 Personal history of nicotine dependence
CPT/HCPCS: 99211

== ENCOUNTER → 2023-08-07 | Outpatient (CLI) | payer BC, OTHER ==
[2023-08-08 11:42] VITALS: BMI 36.9
== END ==
LOC: BARWHC3 13:02
PROVIDERS: ATTEND Surgery Plastic and Reconstructive Surgery
DX: E66.01 Morbid (severe) obesity due to excess calories (principal); Z71.3 Dietary counseling and surveillance; Z68.36 Body mass index [BMI] 36.0-36.9, adult; Z88.6 Allergy status to analgesic agent; Z88.1 Allergy status to other antibiotic agents; Z88.8 Allergy status to other drugs, medicaments and biological substances
CPT/HCPCS: 97804; 99211

== ENCOUNTER → 2023-08-30 | Outpatient (CLI) | payer BC, OTHER ==
--- NOTE | 2023-08-30 15:06 | P.BASOAP ---
Subjective Progress Note Date: 08/30/23 Consent for bypass advised. No more nicotine. SHe has lost almost 10 pounds. SHe is drinking coffee. RTW October 08Monday Objective - Vital Signs Vital signs: Vital Signs Temp 98.9 F 08/30/23 14:40 Pulse 77 08/30/23 14:40 Resp BP 106/74 08/30/23 14:40 Pulse Ox FiO2 Intake & Output 08/29/23 08/30/23 08/30/23 18:59 06:59 18:59 Weight 86.636 kg Assessment/Plan Plan: Date: 08/30/23 Initial Weight: 88.904 kg Initial BMI: 35.8 Current Weight: 86.636 kg Current BMI: 34.9 Type of Surgery: Total Volume in Band: Previous Volume: Volume Removed: Volume Added: Band Size:
[2023-08-30 15:12] VITALS: BP 106/74; PULSE 77; TEMP 98.9; BMI 34.9
[2023-08-31 02:21] LABS: Basophils # (A) 0.07 X 10*3/uL (0.00-0.10); Basophils % (A) 0.9 %; Eosinophils # (A) 0.31 X 10*3/uL (0.04-0.35); HCT 42.5 % (37.2-46.3); HGB 13.8 g/dL (12.0-15.0); Lymphocytes # (A) 2.79 X 10*3/uL (0.90-5.00); Lymphocytes % (A) 35.7 %; MCH 28.9 pg (27.0-32.0); MCHC 32.5 g/dL (32.0-37.0); MCV 89.1 FL (80.0-97.0); Mean Platelet Volume 10.5 FL (9.5-12.2); Monocytes # (A) 0.59 X 10*3/uL (0.20-1.00); Monocytes % (A) 7.6 %; NRBC Per 100 WBC 0 X 10*3/uL (0.00-0.01); Neutrophils # (A) 4.02 X 10*3/uL (1.80-7.70); Neutrophils % (A) 51.4 %; Platelet Count 278 X 10*3/uL (140-440); RBC 4.77 X 10*6/uL (4.10-5.20); RDW 12.9 % (11.5-14.5); WBC 7.81 X 10*3/uL (4.50-10.00)
[2023-08-31 02:39] LABS: ALT 21 U/L (8-44); AST 19 U/L (13-35); Albumin 4.3 g/dL (3.8-4.9); Albumin/Globulin Ratio 1.59 Ratio (1.60-3.17); Alkaline Phosphatase 63 U/L (41-126); BUN/Creat Ratio 28.14 Ratio (12.00-20.00); Blood Urea Nitrogen 19.7 mg/dL (9.0-27.0); Calcium 9.5 mg/dL (8.7-10.3); Carbon Dioxide 22.1 mmol/L (21.6-31.8); Chloride 105 mmol/L (96-109); Globulin 2.7 g/dL (1.6-3.3); Glucose 77 mg/dL (70-110); Iron 47 UG/DL (50-170); Potassium 4.8 mmol/L (3.5-5.5); Sodium 138 mmol/L (135-145); Total Bilirubin 0.2 mg/dL (0.3-1.2)
== END ==
LOC: BARWHC3 13:57
PROVIDERS: ATTEND Surgery Plastic and Reconstructive Surgery
DX: Z01.812 Encounter for preprocedural laboratory examination (principal); E66.01 Morbid (severe) obesity due to excess calories; Z88.1 Allergy status to other antibiotic agents; Z88.5 Allergy status to narcotic agent
CPT/HCPCS: 36415; 80053; 83540; 85025; 86850; 86900; 86901; 99211

== ENCOUNTER 2023-09-04 06:41 | Inpatient (IN) | payer BC, OTHER ==
[2023-09-01 08:51] VITALS: BMI 34.7
[~2023-09-04 06:41] MED LIST changes: -LACTATED RINGERS 1,000 ML IV SCH; -LIDOCAINE 1% INJ 10MG/ML (20 ML MDV) ONE; +MIDAZOLAM 2 MG/2 ML VIAL IV PRN; +ONDANSETRON 4 MG/2 ML VIAL IVP PRN; -PROPOFOL 10 MG/ML 20 ML VIAL IV ONE
[2023-09-04] MEDS: LACTATED RINGERS 1,000 ML IV SCH (07:14)
--- NOTE | 2023-09-04 07:37 | P.GSHP ---
History of Present Illness H&P Date: 09/04/23 CHIEF COMPLAINT: Morbid obesity HISTORY OF PRESENT ILLNESS: Elana Urena is a 28-year-old female who comes with lifelong morbid obesity. She comes in looking into the gastric bypass. She continues to smoke. She has gastroesophageal reflux disease. She is undergoing medical supervised weight loss. She is also undergoing cardiac risk assessment. At height of 5 feet 2 inches, her ideal body weight is 135 pounds. She comes in 190 pounds from 219 pounds. She has lost 30 pounds. Her body mass index was 43.4. She is 55 pounds overweight. PAST MEDICAL HISTORY: 1. Morbid obesity due to excess calories 2. Body mass index of 43.4 3. Asthma 4. Gastroesophageal reflux disease PAST SURGICAL HISTORY: 1. Cholecystectomy 2. LEEP excision HOME MEDICATIONS: Home Medications Medication Instructions Recorded Confirmed Albuterol Inhaler [Ventolin Hfa 1 - 2 puff INHALATION Q6H PRN 10/28/22 07/19/23 Inhaler] Omeprazole 40 mg PO BID 10/28/22 07/19/23 Ergocalciferol [Vitamin D2 (1250 50,000 unit PO WEEKLY 06/08/23 07/19/23 Mcg = 87018 Iu)] Folic Acid 0.8 mg PO DAILY 06/08/23 07/19/23 ALLERGIES: Allergies Allergy/AdvReac Type Severity Reaction Status Date / Time fluoxetine [From Prozac] Allergy Rash/Hives Verified 06/29/23 12:51 ibuprofen Allergy Rash/Hives Verified 06/29/23 12:51 naproxen Allergy Rash/Hives Verified 06/29/23 12:51 SOCIAL HISTORY:Tobacco use. FAMILY HISTORY: No family history of ulcerative colitis disease or Crohn's disease. Family history of morbid obesity. No lupus in the family. No reports of stomach. Bangura's esophagus REVIEW OF ORGAN SYSTEMS: CONSTITUTIONAL: HEENT: Denies any active troubles with vision or hearing. Has troubles with swallowing. ENDOCRINE: Has diabetes. No hypothyroidism. CARDIOVASCULAR: Past reports of palpitations or heart attacks or chest pain. Has hypertensive heart disease. RESPIRATORY: Has daytime somnolence. Has asthma. Has chronic obstructive pulmonary disease. GASTROINTESTINAL: Denies any bright red blood per rectum. No diarrhea. No constipation. Has gastroesophageal reflux disease. GENITOURINARY: Has bladder urgency. No recent blood in urine MUSCULOSKELETAL: Has lower back pain and joint pain. Has osteoarthritis of the knees. History of bilateral lower extremity edema. NEURO: No headaches. No seizure disorders. Has neuropathy. PSYCH: Has depression. No suicidal ideation. RHEUMATOLOGIC: No lupus. No rheumatoid arthritis. HEMATOLOGIC: Denies any abnormal bleeding or bruising. Past history of DVTs. On blood thinners. SKIN: No rash. No skin cancer. PHYSICAL EXAM: VITAL SIGNS: Height 5 foot 2 inches, weight 219 pounds. BMI 43.4 GENERAL: Well-developed in no acute distress. HEENT: No scleral icterus. Extraocular movements grossly intact. Hears conversational speech. No nasal drainage. NECK: Supple without lymphadenopathy. CHEST: Nonlabored respirations with equal bilateral excursions. CARDIOVASCULAR: Regular rate and regular rhythm. Distal 2+ pulses. ABDOMEN: Obese, soft, nontender, nondistended. MUSCULOSKELETAL: No clubbing, cyanosis. NEURO: No focal or lateralizing signs. Cranial nerves 2 through 12 grossly within normal limits. PSYCH: Appropriate affect. Alert and oriented to person, place and time. SKIN: Good skin turgor. Well perfused. ASSESSMENT: 1. Morbid obesity due to excess calories 2. Body mass index of 43.4 3. Asthma 4. Gastroesophageal reflux disease 5. Leukocytosis 6. Vitamin D deficiency 7. Folate deficiency 8. Marijuana use PLAN: 1. Bariatric options between a sleeve, band and a Joe-en-Y gastric bypass were reviewed in detail. The patient elected for a bypass with robotic assisted approach described. 2. The [place] [facility] Data was also reviewed with benefits and risks as described. 3. An 8 page second-generation bariatric consent form was reviewed in detail including potential of bleeding, infection, leaks, adequate weight loss, nutritional deficiencies which the patient demonstrated understanding of the risks. 4. A 2 week high-protein low caloric 800 kcal diet described to address hepatomegaly. 5. Preoperative labs including complete metabolic panel and CBC with type and screen recommended. 6. DVT prophylaxis per [place] [facility]. 7. Antibiotic prophylaxis. 8. Inpatient hospitalization anticipated for more than 2 nights. 9. All questions and concerns were addressed with the patient. 10. The patient is at elevated risk for perioperative complications with sleep apnea and hypertensive heart disease. 11. Overall, patient has expressed understanding of bariatric care including postoperative diet and commitment of lifestyle. Patient should benefit from surgical intervention for correction of morbid obesity. 12. She is elevated risk due to pre-existing comorbid conditions Past Medical History Past Medical History: Asthma, GERD/Reflux Additional Past Medical History / Comment(s): severe gerd, hx of tachycardia at age 18,She has had 3 previous vaginal deliveries. seasonal allergies, mild asthma. History of Any Multi-Drug Resistant Organisms: None Reported Past Surgical History: Cholecystectomy Additional Past Surgical History / Comment(s): LEEP excision of the cervix July 2019 Past Anesthesia/Blood Transfusion Reactions: No Reported Reaction Smoking Status: Vaper - Past Family History Father History Unknown: Yes Family Medical History: No Reported History Additional Family Medical History / Comment(s): Barrette's esophagus Mother Family Medical History: No Reported History Additional Family Medical History / Comment(s): Bangura's esophagus Medications and Allergies Home Medications Medication Instructions Recorded Confirmed Type Albuterol Inhaler [Ventolin Hfa 1 - 2 puff INHALATION Q6H PRN 10/28/22 09/04/23 History Inhaler] Omeprazole 40 mg PO BID 10/28/22 09/04/23 History Ergocalciferol [Vitamin D2 (1250 50,000 unit PO WEEKLY 06/08/23 09/04/23 History Mcg = 37729 Iu)] Folic Acid 0.8 mg PO DAILY 06/08/23 09/04/23 History Allergies Allergy/AdvReac Type Severity Reaction Status Date / Time fluoxetine [From Prozac] Allergy Rash/Hives Verified 09/04/23 07:26 ibuprofen Allergy Rash/Hives Verified 09/04/23 07:26 naproxen Allergy Rash/Hives Verified 09/04/23 07:26 Surgical - Exam Vital Signs Temp Pulse Resp BP Pulse Ox 98.3 F 95 20 104/59 98 09/04/23 07:17 09/04/23 07:17 09/04/23 07:17 09/04/23 07:17 09/04/23 07:17
[2023-09-04] MEDS: ALVIMOPAN 12 MG CAPSULE PO PRN (07:40)
[2023-09-04] MEDS: HEPARIN SODIUM,PORCINE 5,000 UNIT/ML 1 ML VIAL SQ PRN (07:40)
[2023-09-04] MEDS: ACETAMINOPHEN TAB 500 MG TAB PO PRN (07:40)
[2023-09-04] MEDS: diphenhydrAMINE 50 MG/ML 1 ML VIAL ONE (07:50)
[2023-09-04] MEDS: DEXAMETHASONE SOD PHOSPHATE 4 MG/ML 1 ML VIAL IV ONE (07:50)
[2023-09-04] MEDS: ONDANSETRON 4 MG/2 ML VIAL IVP ONE ×2 (08:15→15:11)
[2023-09-04 08:19] LABS: Basophils % (A) 1 %; Eosinophils # (A) 0.2 k/uL (0-0.7); Eosinophils % (A) 3 %; HCT 41.9 % (34.0-46.0); HGB 13.9 gm/dL (11.4-16.0); Lymphocytes # (A) 1.7 k/uL (1.0-4.8); Lymphocytes % (A) 21 %; MCH 29.4 pg (25.0-35.0); MCHC 33.2 g/dL (31.0-37.0); MCV 88.6 fL (80.0-100.0); Mean Platelet Volume 8.9; Monocytes # (A) 0.5 k/uL (0-1.0); Monocytes % (A) 6 %; Neutrophils # (A) 5.3 k/uL (1.3-7.7); Neutrophils % (A) 67 %; Platelet Count 272 k/uL (150-450); RBC 4.74 m/uL (3.80-5.40); RDW 13.1 % (11.5-15.5); WBC 7.9 k/uL (3.8-10.6)
[2023-09-04] MEDS ORDERED: CHLORHEXIDINE GLUCONATE 15 ML CUP MUCOUS MEM ONE (08:20)
[2023-09-04] MEDS: CHLORHEXIDINE GLUCONATE 15 ML CUP MUCOUS MEM STA (08:23)
[2023-09-04] MEDS: SCOPOLAMINE 1 MG/72 HR PATCH TRANSDERM ONE (08:24)
[2023-09-04] MEDS: PANTOPRAZOLE 40 MG/10 ML VIAL IVP STA (08:24)
[2023-09-04] MEDS ORDERED: LIDOCAINE 1% INJ 10MG/ML (20 ML MDV) ONE (08:32)
[2023-09-04] MEDS ORDERED: KETAMINE HCL IN 0.9 % NACL 50 MG/5 ML SYRINGE ONE (08:32)
[2023-09-04] MEDS ORDERED: fentaNYL (PF) 50 MCG/ML 2 ML AMP ONE (08:32)
[2023-09-04] MEDS ORDERED: NEOSTIGMINE 1 MG/ML 10 ML VIAL ONE (08:32)
[2023-09-04] MEDS ORDERED: ESMOLOL 100 MG/10 ML VIAL ONE (08:32)
[2023-09-04] MEDS ORDERED: HYDROmorphone (PF) 1 MG/ML ONE (08:32)
[2023-09-04] MEDS ORDERED: MIDAZOLAM 2 MG/2 ML VIAL ONE (08:32)
[2023-09-04] MEDS ORDERED: PHENYLEPHRINE 10 MG/ML VIAL ONE (08:32)
[2023-09-04] MEDS ORDERED: GLYCOPYRROLATE 0.2 MG/ML 2 ML VIAL ONE (08:32)
[2023-09-04] MEDS ORDERED: SUCCINYLCHOLINE CHLORIDE 200 MG/10 ML VIAL IV ONE (08:32)
[2023-09-04] MEDS ORDERED: PROPOFOL 10 MG/ML 20 ML VIAL IV ONE (08:32)
[2023-09-04] MEDS ORDERED: ROCURONIUM 10 MG/ML (5 ML VIAL) IV ONE (08:32)
[2023-09-04 08:50] LABS: African American GFR (CKD) >90 (>60 ml/min/1.73 sqM); Anion Gap 11 mmol/L; Blood Urea Nitrogen 12 mg/dL (7-17); Calcium 8.7 mg/dL (8.4-10.2); Carbon Dioxide 19 mmol/L (22-30); Chloride 110 mmol/L (98-107); Glucose 67 mg/dL (74-99); Non-African American GFR(CKD) >90 (>60 ml/min/1.73 sqM); Sodium 140 mmol/L (137-145)
[2023-09-04] MEDS: LIDOCAINE 1%-EPI 1:100,000 50 ML VIAL SQ ONE ×2 (08:58→09:03)
[2023-09-04] MEDS: HYDROmorphone 0.5 MG/0.5 ML SYRINGE IVP PRN (11:48)
[2023-09-04] MEDS ORDERED: NALOXONE 0.4 MG/ML 1 ML VIAL IV PRN ×2 (11:56→11:58)
[2023-09-04] MEDS ORDERED: HYDROmorphone 1 MG/ML 1 ML SYRINGE IVP PRN (11:57)
[2023-09-04] MEDS ORDERED: diphenhydrAMINE 50 MG/ML 1 ML VIAL IVP PRN (11:57)
--- NOTE | 2023-09-04 12:18 | P.OP ---
Date of Procedure: 09/04/23 Description of Procedure: SURGEON: DIDIER CHANG MD PREOPERATIVE DIAGNOSES: 1. Morbid obesity due to excess calories 2. Body mass index of 43.4 3. Asthma 4. Gastroesophageal reflux disease 5. Leukocytosis 6. Vitamin D deficiency 7. Folate deficiency POSTOPERATIVE DIAGNOSES: 1. Morbid obesity due to excess calories 2. Body mass index of 43.4 3. Asthma 4. Gastroesophageal reflux disease 5. Leukocytosis 6. Vitamin D deficiency 7. Folate deficiency OPERATION: 1. Robotic assisted da Yoandy Xi laparoscopic Madalyn-en-Y gastric bypass, 150 cm antecolic antegastric Madalyn limb, with 25 mm EEA. 2. Intraoperative esophagogastrojejunoscopy. ANESTHESIA: TIVA and local, general ESTIMATED BLOOD LOSS: 10 mL SPECIMENS REMOVED: None. COMPLICATIONS: NONE. Operative Findings: 1. Biliopancreatic limb 60 cm 2. Bypass performed using 150 cm madalyn limb 3. Jejunojejunostomy and Wharton's defects closed using 2-0 V-LOC, green 4. Leak test negative with gastrojejunal anastomosis patent and hemostatic. 5. Reinforcement sutures were placed along the gastrojejunal anastomosis at 3:00, 9:00 and 12:00. 6. Anterior diaphragmatic hiatal hernia 1 cm reducible INDICATIONS: Elana Urena is a 28-year-old female who comes with lifelong morbid obesity. She comes in looking into the gastric bypass. She continues to smoke. She has gastroesophageal reflux disease. She is undergoing medical supervised weight loss. She is also undergoing cardiac risk assessment. At height of 5 feet 2 inches, her ideal body weight is 135 pounds. She comes in 190 pounds from 219 pounds. She has lost 30 pounds. Her body mass index was 43.4. She is 55 pounds overweight. A second-generation bariatric consent form was described in detail including the possibility of protein malnutrition, leaks, gastrojejunal stricture, venous thrombosis, need for further surgery for which she demonstrated understanding. Benefits and risks of the procedure were described at length. Informed consent was obtained. DESCRIPTION: The patient was brought into the operating room theater. She was placed supine. She had received heparin subcutaneously for DVT prophylaxis. Additionally Peridex oral solution as an oral decontaminant was placed per anesthesia. After general induction, the abdomen was prepped and draped in standard sterile fashion. Ioban draping was placed along the abdomen. Hawthorne catheter was avoided. A robotic da Yoandy Xi system was prepped and primed. Incisions were proposed at 15 cm from the xiphoid. Proposed port sites were marked with indelible marker along the anterior axillary line bilaterally, mid clavicular line bilaterally with each port marked 10 cm from each other. The robotic stapler port was marked for the right midclavicular line including along the left midclavicular line. A 5 mm 0 degrees laparoscopic trocar entry was performed along the left upper quadrant. The abdomen was insufflated to 15 mmHg pressure, which she tolerated well. Diagnostic laparoscopy demonstrated no injury to bowel, viscera, or mesentery. The liver was consistent with her 2-week protein diet without hepatomegaly. An 8 mm camera port was placed left lateral to the umbilicus at the epigastrium, 15 cm distal to the xiphoid. Next, 12-mm robot stapler port was placed along the right mid abdomen. An 12 mm port was exchanged along the left upper quadrant. An 8 mm port was placed on the left lateral abdominal wall under direct visualization Please note that the ports were placed 18 to 20 cm away from the target anatomy of the stomach. Care was taken to check that each robotic arm was safely away from collision with the bed or the patient. At the epigastrium, a medium sized Aditya liver retractor was placed under direct visualization with the Iron Panel Maker placed under the right shoulder of the patient. The patient was repositioned in reverse Trendelenburg position at 21-degrees after lowering the bed. The robot was docked over the patient. Using grasper for arm 3, a grasper for arm 1, including vessel sealer for arm 4, the robotic system was docked and primed as described. Instruments were interchanged by the electrician assistant including endoscissors, the needle driver guard, and stapler. I had sat at the console. Along the lesser curvature of the stomach, dissection was made along the retrogastric space to allow first firing of the robotic staple. Green and blue loads of 60 mm staplers were used to divide the stomach to create the gastric pouch. Next, the transverse mesocolon was reflected into the upper abdomen for the jejunojejunostomy portion of the case. The ligament of Treitz was identified and measured 60 cm antegrade and marked using 3-0 Silk. The jejunum was divided at the 60 cm point using 60-mm white loads above the suture measurement. The biliopancreatic limb was held in place. The Madalyn limb was measured 150 cm in an antegrade fashion. At 100 cm along the anti-mesenteric border of the Madalyn limb, a jejunojejunostomy was proposed whereby enterotomies were created along the biliopancreatic limb including the Madalyn limb using a Bovie cautery. A stay suture of 3-0 Slik was placed to align and create the anastomosis. The enterotomies along the anti- mesenteric borders were created followed by unidirectional fire from the quentin ent's right side using 60 mm white loads [employer] robotic stapler. The jejunojejunostomy was found to be hemostatic. The enterotomy was closed after horizontal mattress stitch of 3-0 silk used to elevate the enterotomy followed by closure with the robotic stapler blue load. The jejunal limb was temporarily tacked along the left upper quadrant. Attention was now brought to the creation of the gastrojejunostomy. The patient was then prepared for placement of a Orvil. A 25-mm Orvil was selected for placement by the nurse immigration associate. The Orvil tubing was placed anterior to the staple line of the gastric pouch and brought out through the left inferior lateral port. I re-scrubbed into the case. The robotic arms were temporarily undocked. The Orvil was then carefully and successfully navigated with the help of the nurse immigration associate into the gastric pouch. The sutures were identified and divided. The tubing was from the 25 mm anvil. As the Orvil had been placed, the jejunal limb was brought proximally into the upper abdomen. No torsion was found upon the Madalyn limb. No tension was identified as the limb was brought along the upper abdomen. The jejunal limb was previously opened using hook cautery. The 25-mm EEA stapler was brought through the left anterior lateral port site from the left side. The EEA stapler was brought through the open jejunal limb and its needle was deployed at the antimesenteric border where the anvil were mated for approximately 1 minute upon firing. The stapler was removed after irrigating the shaft of the instrument with warm normal saline. Donuts were found to be intact and on both sides. The da Yoandy Xi robot arms were then re-docked. I sat at the console. The open jejunal limb defect was closed using 60 mm white loads after releasing any tension from the blind jejunal limb. No redundancy was present for jejunal limb. The transverse mesocolon was divided for the madalyn limb. Reinforcement sutures were placed along the gastrojejunal anastomosis and placed along the 9:00, 12:00 o'clock position using 3-0 Vicryl. The Wharton and jejunojejunostomy mesenteric defect was closed using 2-0 V LOC, green. I then went to the head of the bed to perform the esophagogastrojejunoscopy and a leak test. An Olympus gastroscope was passed alongthe posterior oropharynx which was unremarkable for any injury to the vocal cords. The scope was passed down to the proximal portion of the pouch, whereby no active bleeding was encountered. Excellent visualization of the gastrojejunostomy anastomosis, including the Madalyn limb was encountered with endoscopic image obtained. The anastomosis was found to be patent without active bleeding. Residual blood was suctioned from the gastric pouch. The gastrointestinal tract was desufflated. No evidence of intraoperative leak was encountered as the gastric pouch and anastomosis were submerged under normal saline solution. The robot was then undocked. I then went back to the bedside of the patient, whereby with coordinated effort of the electrician assistant, irrigation was aspirated from the upper abdominal cavity. Tisseel was placed circumferentially over the anastomosis of the gastrojejunostomy. The fascial defect of the EEA stapler was closed using Fabian Bueno and 0 Vicryl. All instruments and pneumoperitoneum were evacuated from the abdominal cavity. The port correlating with the EEA stapler device was cleansed with normal saline solution and hydrogen peroxide. The rest of incisions were reapproximated using 4-0 Monocryl in an interrupted subcuticular fashion. Local anesthetic was infiltrated along the skin for postop analgesia. Liquid glue was applied to the skin. OptiFoam dressing was placed along the EEA stapler site. At the end of the procedure, needle, sponge and instrument count had been verified correct by the surgical resident. The patient had tolerated the procedure well and was extubated and taken to the postanesthesia unit in stable condition.
[2023-09-04] MEDS: ALBUTEROL NEBULIZED 2.5 MG/3 ML INHALATION SCH (15:21)
[2023-09-04] MEDS: ACETAMINOPHEN IV (For NPO) 1,000 MG in EMPTY BAG 1 BAG IVPB SCH (15:31)
[2023-09-04] MEDS: ONDANSETRON 4 MG/2 ML VIAL IVP SCH (15:32)
[2023-09-04] MEDS: SODIUM CHLORIDE 0.9% 1,000 ML IV SCH (15:32)
[2023-09-04] MEDS: 0.9% NACL WITH KCL 20 MEQ/L 1,000 ML IV SCH (15:48)
[2023-09-04] MEDS: fentaNYL PCA 500 MCG/50 ML BAG IV SCH (16:54)
[2023-09-04] MEDS: SIMETHICONE 80 MG CHEWABLE PO SCH (17:59)
[2023-09-04] MEDS: HEPARIN SODIUM,PORCINE 5,000 UNIT/ML 1 ML VIAL SQ SCH (19:56)
[2023-09-04] MEDS: PANTOPRAZOLE 40 MG/10 ML VIAL IV SCH (19:56)
[2023-09-05] MEDS: 0.9% NACL WITH KCL 20 MEQ/L 1,000 ML IV SCH (08:19)
[2023-09-05 09:05] LABS: Basophils # (A) 0.1 k/uL (0-0.2); Basophils % (A) 1 %; Eosinophils % (A) 0 %; HCT 39.2 % (34.0-46.0); HGB 12.5 gm/dL (11.4-16.0); Lymphocytes # (A) 1.5 k/uL (1.0-4.8); Lymphocytes % (A) 13 %; MCH 29.2 pg (25.0-35.0); MCHC 31.9 g/dL (31.0-37.0); MCV 91.4 fL (80.0-100.0); Mean Platelet Volume 8.7; Monocytes # (A) 0.7 k/uL (0-1.0); Monocytes % (A) 6 %; Neutrophils # (A) 9.6 k/uL (1.3-7.7); Neutrophils % (A) 80 %; Platelet Count 257 k/uL (150-450); RBC 4.28 m/uL (3.80-5.40); RDW 13.1 % (11.5-15.5); WBC 12.1 k/uL (3.8-10.6)
[2023-09-05 09:17] LABS: African American GFR (CKD) >90 (>60 ml/min/1.73 sqM); Anion Gap 9 mmol/L; Blood Urea Nitrogen 5 mg/dL (7-17); Calcium 8.2 mg/dL (8.4-10.2); Carbon Dioxide 20 mmol/L (22-30); Chloride 109 mmol/L (98-107); Magnesium 1.9 mg/dL (1.6-2.3); Non-African American GFR(CKD) >90 (>60 ml/min/1.73 sqM); Phosphorus 2.3 mg/dL (2.5-4.5); Potassium 4.6 mmol/L (3.5-5.1); Sodium 138 mmol/L (137-145)
--- NOTE | 2023-09-05 12:54 | FL ---
SINGLE CONTRAST UPPER GI EXAMINATION: CLINICAL HISTORY: 28-year-old female postop bariatric surgery, Joe-en-Y gastric bypass TECHNIQUE: Single contrast exam performed with 50 ml Isovue-370 contrast. Total fluoroscopy time: 1 minute 35 seconds. Total images: 30 DOSE AREA PRODUCT (DAP) UGY*M,MGY*CM: 373.3 FINDINGS: The patient swallowed oral contrast without difficulty or delay. Esophageal peristalsis and motility are within normal limits. There is prompt passage of contrast from the esophagus into the proximal stomach but then gradual accumulation and some back filling into the distal esophagus and episodes of gastroesophageal reflux. Gradual intermittent passage of contrast across the patient's gastrojejunostomy which shows some impr ovement as the study progresses. Contrast material extends into left mid abdominal jejunal loops. No evidence for free intraperitoneal air. IMPRESSION: 1. Status post Joe-en-Y gastric bypass. No evidence for leak. 2. Mild relative obstruction at the level of the gastrojejunostomy likely due to some postoperative e brooklynn. This shows partial improvement towards the end of the exam. 3. No postsurgical free air.
[2023-09-05 14:35] VITALS: BP 120/79; PULSE 74; RESP 18; TEMP 98.7
--- NOTE | 2023-09-05 14:39 | P.DS ---
Providers Date of admission: 09/04/23 06:41 Expected date of discharge: 09/05/23 Attending physician: Shannan Huang Consults: 09/04/23 07:39 Consult Physician Routine Consulting Provider: [facility] Consult Reason/Comments: TIVA for gastric bypass Do you want consulting provider notified?: Yes Primary care physician: Erika Qureshi Hospital Course: Discharge diagnosis 1. Morbid obesity due to excess calories 2. Body mass index of 43.4 3. Asthma 4. Gastroesophageal reflux disease 5. Leukocytosis 6. Vitamin D deficiency 7. Folate deficiency 8. Urinary retention improved Hospital course Elana Urena is a 28-year-old female who comes with lifelong morbid obesity. Patient is status post Robotic assisted da Yoandy Xi laparoscopic Joe-en-Y gastric bypass. Upper GI reported mild with relative obstruction at the level of the gastrojejunostomy likely due to some postoperative edema. No postsurgical free air. Patient tolerating liquid diet. Pain is controlled. She is afebrile. She has been up and ambulating. Patient did have some urinary retention throughout the night. This has improved. Patient is able to urinate. Patient is stable for discharge. Physician Logging Engineer note has been reviewed by physician. Signing provider agrees with the documented findings, assessment, and plan of care. Patient Condition at Discharge: Stable Plan - Discharge Summary Discharge Rx Participant: Yes New Discharge Prescriptions: New bisacodyL [Dulcolax] 5 mg PO DAILY PRN #10 tab PRN Reason: Constipation Simethicone 40 mg/0.6 ml Drops [Mylicon Drops] 40 mg PO PCHS PRN #30 ml PRN Reason: Gas Acetaminophen Tab [Tylenol] 1,000 mg PO Q6HR PRN #30 tablet PRN Reason: Pain Ondansetron Odt [Zofran Odt] 4 mg PO Q8HR PRN #9 tab PRN Reason: Nausea Continue Omeprazole 40 mg PO BID Albuterol Inhaler [Ventolin Hfa Inhaler] 1 - 2 puff INHALATION Q6H PRN PRN Reason: Shortness Of Breath Discontinued Folic Acid 0.8 mg PO DAILY Ergocalciferol [Vitamin D2 (1250 Mcg = 42734 Iu)] 50,000 unit PO WEEKLY Discharge Medication List Albuterol Inhaler [Ventolin Hfa Inhaler] 1 - 2 puff INHALATION Q6H PRN 10/28/22 [History] Omeprazole 40 mg PO BID 10/28/22 [History] Acetaminophen Tab [Tylenol] 1,000 mg PO Q6HR PRN #30 tablet 09/05/23 [Rx] Ondansetron Odt [Zofran Odt] 4 mg PO Q8HR PRN #9 tab 09/05/23 [Rx] Simethicone 40 mg/0.6 ml Drops [Mylicon Drops] 40 mg PO PCHS PRN #30 ml 09/05/23 [Rx] bisacodyL [Dulcolax] 5 mg PO DAILY PRN #10 tab 09/05/23 [Rx] Follow up [facility]ment(s[facility]Ref[facility] [place] [facility] 9:00 am Activity/Diet/Wound Care/Special Instructions: Liquid diet only for 2 weeks No lifting over 4 pounds in 4 weeks, May Shower. No soaking in bath tubs for 2 weeks Please notify your surgeon if you develop nausea and vomiting including new onset of abdominal pain. Continue to use incentive spirometry to prevent pneumonias. Please continue to ambulate at home to prevent blood clots in legs. Follow-up at the bariatric center. May shower. Dressings to be discontinued by surgeon in the office. Drink 64 oz of fluid daily. Start protein shakes on . Notify bariatric center for temp over 101.0, increased pain, drainage from incisions. No straws or carbonated beverages. Liquid diet only. Sugar content should be less than 6 g to avoid dumping syndrome. Take MOM for constipation. CRUSH, OPEN, OR CUT TABLETS LARGER THAN A SIZE OF A TIC TAC Discharge Disposition: HOME SELF-CARE
== END 2023-09-05 16:30 | disposition home or self-care (01) | DRG 621 ==
LOC: 2ORMAIN 06:41 → 4SSUR 15:07
PROVIDERS: ADMIT Surgery Plastic and Reconstructive Surgery; ATTEND Surgery Plastic and Reconstructive Surgery
PROC: 0DJ08ZZ Inspection of Upper Intestinal Tract, Via Natural or Artificial Opening Endoscopic (ICD-10-PCS; principal; 2023-09-04 08:15)
PROC: 0D164ZA Bypass Stomach to Jejunum, Percutaneous Endoscopic Approach (ICD-10-PCS; principal; 2023-09-04 08:15)
PROC: 8E0W4CZ Robotic Assisted Procedure of Trunk Region, Percutaneous Endoscopic Approach (ICD-10-PCS; principal; 2023-09-04 08:15)
DX: E66.01 Morbid (severe) obesity due to excess calories (principal); D72.829 Elevated white blood cell count, unspecified; E53.8 Deficiency of other specified B group vitamins; E55.9 Vitamin D deficiency, unspecified; F17.200 Nicotine dependence, unspecified, uncomplicated; J45.909 Unspecified asthma, uncomplicated; K21.9 Gastro-esophageal reflux disease without esophagitis; K44.9 Diaphragmatic hernia without obstruction or gangrene; Z68.41 Body mass index [BMI] 40.0-44.9, adult; R33.9 Retention of urine, unspecified; Z88.6 Allergy status to analgesic agent; Z88.0 Allergy status to penicillin
CPT/HCPCS: 74240; 80048; 80051; 81025; 82310; 82565; 83735; 84100; 84520; 85025; 94640; 94760

== ENCOUNTER → 2023-10-04 | Outpatient (CLI) | payer BC, OTHER ==
--- NOTE | 2023-10-04 16:53 | P.BASOAP ---
Subjective Progress Note Date: 10/04/23 She can tolerate chilli. She has flu. She can tolerate curd cottage cheese. Drink warm beverage twice. Agata tea natural for nausea. For 1 week, she still has omeprazole. Needs more time off work. Objective - Vital Signs Vital signs: Intake & Output 10/03/23 10/04/23 10/04/23 18:59 06:59 18:59 Weight 77.564 kg Assessment/Plan Plan: Date: Initial Weight: 88.904 kg Initial BMI: Current Weight: 77.564 kg Current BMI: 31.2 Type of Surgery: Total Volume in Band: Previous Volume: Volume Removed: Volume Added: Band Size:
--- NOTE | 2023-10-04 16:57 | P.PN ---
Progress Note - Text Progress Note Date: 10/04/23 To whom it may concern: Elana Urena is under my medical care. She is very ill. She may not return to work until cleared. Time off work is anticipated for 4 weeks, November 06, 2023. Regards, Shannan Huang MD FACS
[2023-10-04 17:01] VITALS: BMI 31.2
[2023-10-05 15:30] VITALS: BP 132/85; PULSE 69; RESP 16; TEMP 98.1
== END ==
LOC: BARWHC3 14:58
PROVIDERS: ATTEND Surgery Plastic and Reconstructive Surgery
DX: E66.01 Morbid (severe) obesity due to excess calories (principal); Z53.9 Procedure and treatment not carried out, unspecified reason
CPT/HCPCS: 97803; 99211

== ENCOUNTER 2024-01-22 08:47 | Day surgery (SDC) | payer OTHER ==
[2024-01-18 10:01] VITALS: BMI 24.7
--- NOTE | 2024-01-22 07:59 | P.GSHP ---
History of Present Illness H&P Date: 01/22/24 CHIEF COMPLAINT: GERD HISTORY OF PRESENT ILLNESS: The patient is a 28-year-old female who presents reports gastroesophageal reflux disease. Upper endoscopy was offered for further evaluation and management. PAST MEDICAL HISTORY: Please see list. PAST SURGICAL HISTORY: Please see list. MEDICATIONS: Please see list. ALLERGIES: Please see list. SOCIAL HISTORY: No illicit drug use FAMILY HISTORY: No reports of Crohn disease or ulcerative colitis. REVIEW OF ORGAN SYSTEMS: CONSTITUTIONAL: No reports of fevers or chills. GI: Denies any blood in stools or constipation. PHYSICAL EXAM: VITAL SIGNS: Stable GENERAL: Well-developed and pleasant in no acute distress. HEENT: No scleral icterus. Extraocular movements grossly intact. Moist buccal mucosa. NECK: Supple without lymphadenopathy. CHEST: Unlabored respirations. Equal bilateral excursions. CARDIOVASCULAR: Regular rate and rhythm. Distal 2+ pulses. ABDOMEN: Soft, nondistended. MUSCULOSKELETAL: No clubbing, cyanosis, or edema. ASSESSMENT: 1. Gastroesophageal reflux disease PLAN: 1. Recommend proceeding with an upper endoscopy Past Medical History Past Medical History: Asthma, GERD/Reflux Additional Past Medical History / Comment(s): "I've been having pressure upper abd area with nausea and vomiting." Severe GERD. Hx tachycardia at age 18. Seasonal allergies, mild asthma. 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 Past Anesthesia/Blood Transfusion Reactions: No Reported Reaction, Postoperative Nausea & Vomiting (PONV) Additional Past Anesthesia/Blood Transfusion Reaction / Comment(s): No hx of blood transfusion. "I'm spacey when I first wake up." "I had a hard time waking up from the anesthesia." Smoking Status: Never smoker, Vaper - Past Family History Father History Unknown: Yes Family Medical History: No Reported History Additional Family Medical History / Comment(s): Bangura's esophagus. Mother Family Medical History: No Reported History Additional Family Medical History / Comment(s): Bangura's esophagus. Medications and Allergies Home Medications Medication Instructions Recorded Confirmed Type Albuterol Inhaler [Ventolin Hfa 1 - 2 puff INHALATION Q6H PRN 10/28/22 01/18/24 History Inhaler] Omeprazole 40 mg PO QAM 10/28/22 01/18/24 History Multivitamins, Thera [Multivitamin 1 tab PO QAM 10/11/23 01/18/24 History (formulary)] Biotin 1 tab PO QAM 12/27/23 01/18/24 History Sucralfate [Carafate] 1 gm PO ACHS 01/18/24 01/18/24 History Allergies Allergy/AdvReac Type Severity Reaction Status Date / Time fluoxetine [From Prozac] Allergy Rash/Hives Verified 01/18/24 09:49 ibuprofen Allergy Rash/Hives Verified 01/18/24 09:49 naproxen Allergy Rash/Hives Verified 01/18/24 09:49
[~2024-01-22 08:47] MED LIST changes: +LACTATED RINGERS 1,000 ML IV SCH; -MIDAZOLAM 2 MG/2 ML VIAL IV PRN; -ONDANSETRON 4 MG/2 ML VIAL IVP PRN
[2024-01-22 09:09] VITALS: TEMP 97.9
[2024-01-22] MEDS: LACTATED RINGERS 1,000 ML IV ONE (09:20)
[2024-01-22] MEDS ORDERED: PROPOFOL 10 MG/ML 20 ML VIAL IV ONE (09:23)
[2024-01-22 09:54] VITALS: RESP 16
[2024-01-22 09:58] VITALS: BP 114/83; PULSE 76
--- NOTE | 2024-01-22 10:28 | P.PCN ---
Date of Procedure: 01/22/24 Description of Procedure: PREOPERATIVE DIAGNOSES: 1. Dysphagia 2. Epigastric abdominal pain, moderate to severe 3. History of Joe-en-Y gastric bypass 4. Nausea and vomiting POSTOPERATIVE DIAGNOSES: 1. Acute gastrojejunal ulcer without bleeding with obstruction PROCEDURE PERFORMED: Esophagogastrojejunoscopy with biopsies on the gastric pouch. SURGEON: Shannan Huang MD ANESTHESIA: MAC. INDICATIONS: The patient is a 28-year-old female who presents with 4-month history of epigastric abdominal pain. With her history of Joe-en-Y gastric bypass, upper endoscopy was offered for further evaluation and management. Benefits and risks described. Informed consent was obtained. DESCRIPTION: Patient was brought to the endoscopy suite and laid in the left lateral decubitus position. After adequate IV sedation, a bite block was placed. An Olympus gastroscope was passed along the posterior oropharynx down to the distal esophagus where the squamocolumnar junction was found at approximately 35 cm from the incisors. Her anastomosis was found at 42 cm, consistent with approximately 7 cm gastric pouch. Acute gastrojejunal ulceration, 5 mm was found along the anastomosis without active bleeding however with partial obstruction, 12 mm anastomosis. Biopsies along the gastric pouch. The scope was passed to 60 cm of the Joe limb. No remnant of blind jejunal limb was retained. The GI tract was desufflated. The patient tolerated the procedure well. FINDINGS: 1. Acute gastrojejunal ulceration of 5 mm along anastomosis without bleeding with partial obstruction 12 mm 2. No foreign body found along the anastomosis. 3. No elongated jejunal blind pouch. 4. Squamocolumnar junction at 35 cm from the incisors. 5. Anastomosis at 42 cm from the incisors. 6. Gastric pouch 7 cm. 7. Chronic gastritis of the gastric pouch. PLAN: 1. Will increase omeprazole from 40 mg daily to 40 mg twice daily 2. Carafate 1 g 3 times daily described in addition to above 3. Patient advised to avoid all forms of NSAIDs due to severe ulcer 4. Patient encouraged to take yogurt daily which acts as a mild antacid 5. Will need repeat upper endoscopy in 4 weeks for possible dilation Plan - Discharge Summary Discharge Rx Participant: No New Discharge Prescriptions: New Omeprazole 40 mg PO BID #30 cap Continue Albuterol Inhaler [Ventolin Hfa Inhaler] 1 - 2 puff INHALATION Q6H PRN PRN Reason: Shortness Of Breath Sucralfate [Carafate] 1 gm PO ACHS Multivitamins, Thera [Multivitamin (formulary)] 1 tab PO QAM Biotin 1 tab PO QAM Discontinued Omeprazole 40 mg PO QAM Discharge Medication List Albuterol Inhaler [Ventolin Hfa Inhaler] 1 - 2 puff INHALATION Q6H PRN 10/28/22 [History] Multivitamins, Thera [Multivitamin (formulary)] 1 tab PO QAM 10/11/23 [History] Biotin 1 tab PO QAM 12/27/23 [History] Sucralfate [Carafate] 1 gm PO ACHS 01/18/24 [History] Omeprazole 40 mg PO BID #30 cap 01/22/24 [Rx] Follow up App[facility]ment(s[facility]Ref[facility] [place] [facility] - [facility] (No Ibuprofen, no aspirin, no NSAIDS. No cofee or juice. ) Patient Instructions/Handouts: *Surgery [facility] - (Anesthesia) Discharge Instructions Outpatient Surgery, Peptic Ulcer (GEN) Discharge Disposition: HOME SELF-CARE
== END 2024-01-22 10:28 | disposition home or self-care (01) ==
LOC: ORWHC2ENDO 08:47
PROVIDERS: ATTEND Surgery Plastic and Reconstructive Surgery
DX: K52.9 Noninfective gastroenteritis and colitis, unspecified (principal); K28.3 Acute gastrojejunal ulcer without hemorrhage or perforation; K21.9 Gastro-esophageal reflux disease without esophagitis; J45.909 Unspecified asthma, uncomplicated; F17.290 Nicotine dependence, other tobacco product, uncomplicated; F12.90 Cannabis use, unspecified, uncomplicated; Z79.899 Other long term (current) drug therapy; Z90.49 Acquired absence of other specified parts of digestive tract; Z98.84 Bariatric surgery status; Z79.51 Long term (current) use of inhaled steroids; Z88.8 Allergy status to other drugs, medicaments and biological substances; Z91.048 Other nonmedicinal substance allergy status
CPT/HCPCS: 88305; 43239; J2704

== ENCOUNTER 2024-06-14 10:05 | Observation (INO) | payer OTHER ==
--- NOTE | 2024-06-14 10:24 | ED ---
Abdominal Pain HPI - General Chief Complaint: Abdominal Pain Stated Complaint: Abd pain Time Seen by Provider: 06/14/24 10:17 Source: patient, RN notes reviewed Mode of arrival: wheelchair Limitations: no limitations - History of Present Illness Initial Comments: 29-year-old female presents emergency department from bariatric clinic with chief complaint of abdominal pain. Patient is been having worsening abdominal pain she had gastric bypass surgery by Dr. Huang 1 year ago. Patient was sent in for further evaluation possible admission and EGD. Patient states she is mid upper abdomen pain she states she believes she has some ulcers and she is on omeprazole and Carafate. She denies any dysuria denies any chance no change in bowel habits. - Related Data Home Medications Medication Instructions Recorded Confirmed Albuterol Inhaler [Ventolin Hfa 2 puff INHALATION RT-QID PRN 10/28/22 06/14/24 Inhaler] Multivitamins, Thera [Multivitamin 1 tab PO DAILY 10/11/23 06/14/24 (formulary)] Sucralfate [Carafate] 1 gm PO ACHS 01/18/24 06/14/24 Fluticasone Propion/Salmeterol 1 puff INHALATION RT-BID PRN 06/14/24 06/14/24 [Wixela 100-50 Inhub] Omeprazole 40 mg PO DAILY 06/14/24 06/14/24 Allergies Allergy/AdvReac Type Severity Reaction Status Date / Time fluoxetine [From Prozac] Allergy Rash/Hives Verified 06/14/24 12:30 ibuprofen Allergy Rash/Hives Verified 06/14/24 12:30 naproxen Allergy Rash/Hives Verified 06/14/24 12:30 NSAIDS (Non-Steroidal Allergy Rash/Hives Verified 06/14/24 12:30 Anti-Inflamma Review of Systems ROS Statement: Those systems with pertinent positive or pertinent negative responses have been documented in the HPI. ROS Other: All systems not noted in ROS Statement are negative. Past Medical History Past Medical History: Asthma, GERD/Reflux Additional Past Medical History / Comment(s): "I've been having pressure upper abd area with nausea and vomiting." Severe GERD. Hx tachycardia at age 18. Seasonal allergies, mild asthma. 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 Past Anesthesia/Blood Transfusion Reactions: No Reported Reaction, Postoperative Nausea & Vomiting (PONV) Additional Past Anesthesia/Blood Transfusion Reaction / Comment(s): No hx of blood transfusion. "I'm spacey when I first wake up." "I had a hard time waking up from the anesthesia." Past Psychological History: No Psychological Hx Reported Smoking Status: Never smoker, Vaper Past Alcohol Use History: None Reported Past Drug Use History: Marijuana - Past Family History Father History Unknown: Yes Family Medical History: No Reported History Additional Family Medical History / Comment(s): Abngura's esophagus. Mother Family Medical History: No Reported History Additional Family Medical History / Comment(s): Bangura's esophagus. General Exam Limitations: no limitations General appearance: alert, in no apparent distress Head exam: Present: atraumatic, normocephalic, normal inspection Eye exam: Present: normal appearance, PERRL, EOMI. Absent: scleral icterus, conjunctival injection, periorbital swelling Respiratory exam: Present: normal lung sounds bilaterally. Absent: respiratory distress, wheezes, rales, rhonchi, stridor Cardiovascular Exam: Present: regular rate, normal rhythm, normal heart sounds. Absent: systolic murmur, diastolic murmur, rubs, gallop, clicks GI/Abdominal exam: Present: soft, tenderness, normal bowel sounds. Absent: distended, guarding, rebound, rigid Back exam: Absent: CVA tenderness (R), CVA tenderness (L) Course Vital Signs 06/14/24 06/14/24 06/14/24 10:14 10:37 11:05 Temperature 98.2 F 98.6 F Pulse Rate 100 84 90 Respiratory 18 18 14 Rate Blood Pressure 104/65 109/66 114/72 O2 Sat by Pulse 99 99 99 Oximetry 06/14/24 12:08 Temperature Pulse Rate 92 Respiratory 16 Rate Blood Pressure 104/72 O2 Sat by Pulse 99 Oximetry Medical Decision Making - Medical Decision Making Was pt. sent in by a medical professional or institution (, PA, SAP BW ARCHITECT, urgent care, hospital, or longterm...) When possible be specific @ -[Dr. Huang Did you speak to anyone other than the patient for history (EMS, parent, family, police, friend...)? What history was obtained from this source @ -No Did you review nursing and triage notes (agree or disagree)? Why? @ -I reviewed and agree with nursing and triage notes Were old charts reviewed (outside hosp., previous admission, EMS record, old EKG, old radiological studies, urgent care reports/EKG's, longterm records)? Report findings @ -No old charts were reviewed Differential Diagnosis (chest pain, altered mental status, abdominal pain women, abdominal pain men, vaginal bleeding, weakness, fever, dyspnea, syncope, headache, dizziness, GI bleed, back pain, seizure, CVA, palpatations, mental health, musculoskeletal)? @ -Differential Abdominal Pain Women: Appendicitis, Cholecystitis, diverticulosis, ischemic bowel, pancreatitis, hepatitis, UTI, gastroenteritis, AAA, incarcerated hernia, bowel obstruction, constipation, inflammatory bowel, hepatitis, peptic ulcer disease, splenic infarction, perforated viscus, vulvitis, ovarian torsion, PID, kidney stone, placenta abruption, this is not meant to be an all-inclusive list EKG interpreted by me (3pts min.). @ -None X-rays interpreted by me (1pt min.). @ -None done CT interpreted by me (1pt min.). @ -CT the abdomen pelvis shows ill-defined thick wall fluid collection no other acute process U/S interpreted by me (1pt. min.). @ -None done What testing was considered but not performed or refused? (CT, X-rays, U/S, labs)? Why? @ -None What meds were considered but not given or refused? Why? @ -None Did you discuss the management of the patient with other professionals (professionals i.e. , PA, SAP BW ARCHITECT, lab, RT, psych nurse, social science instructor, recovery advocate, teacher, crime prevention police officer, rehabilitation case coordinator)? Give summary @ -Dr. Huang for admission Was smoking cessation discussed for >3mins.? @ -No Was critical care preformed (if so, how long)? @ -No Were there social determinants of health that impacted care today? How? (Homelessness, low income, unemployed, alcoholism, drug addiction, transportation, low edu. Level, literacy, decrease access to med. care, fci, rehab)? @ -No Was there de-escalation of care discussed even if they declined (Discuss DNR or withdrawal of care, Hospice)? DNR status @ -No What co-morbidities impacted this encounter? (DM, HTN, Smoking, COPD, CAD, Cancer, CVA, ARF, Chemo, Hep., AIDS, mental health diagnosis, sleep apnea, morbid obesity)? @ -None Was patient admitted / discharged? Hospital course, mention meds given and route, prescriptions, significant lab abnormalities, going to OR and other pertinent info. @ -Admitted to Dr. Huang for further treatment evaluation fluid hydration analgesics. Undiagnosed new problem with uncertain prognosis? @ -No Drug Therapy requiring intensive monitoring for toxicity (Heparin, Nitro, Insulin, Cardizem)? @ -No Were any procedures done? @ -No Diagnosis/symptom? @ -[Abdominal pain Acute, or Chronic, or Acute on Chronic? @ -Acute Uncomplicated (without systemic symptoms) or Complicated (systemic symptoms)? @ -Uncomplicated Side effects of treatment? @ -No Exacerbation, Progression, or Severe Exacerbation? @ -No Poses a threat to life or bodily function? How? (Chest pain, USA, VT, pneumonia, PE, COPD, DKA, ARF, appy, cholecystitis, CVA, Diverticulitis, Homicidal, Suicidal, threat to staff... and all critical care pts) @ -No - Lab Data Result diagrams: 06/14/24 10:27 06/14/24 10:27 Lab Results 06/14/24 06/14/24 06/14/24 Range/Units 10:27 10:27 10:27 WBC 5.9 (3.8-10.6) k/uL RBC 4.57 (3.80-5.40) m/uL Hgb 12.7 (11.4-16.0) gm/dL Hct 40.0 (34.0-46.0) % MCV 87.6 (80.0-100.0) fL MCH 27.7 (25.0-35.0) pg MCHC 31.7 (31.0-37.0) g/dL RDW 13.5 (11.5-15.5) % Plt Count 286 (150-450) k/uL MPV 7.8 Neutrophils % 66 % Lymphocytes % 25 % Monocytes % 6 % Eosinophils % 2 % Basophils % 1 % Neutrophils # 3.9 (1.3-7.7) k/uL Lymphocytes # 1.4 (1.0-4.8) k/uL Monocytes # 0.3 (0-1.0) k/uL Eosinophils # 0.1 (0-0.7) k/uL Basophils # 0.0 (0-0.2) k/uL Sodium (137-145) mmol/L Potassium (3.5-5.1) mmol/L Chloride (98-107) mmol/L Carbon Dioxide (22-30) mmol/L Anion Gap mmol/L BUN (7-17) mg/dL Creatinine (0.52-1.04) mg/dL Est GFR (CKD-EPI)AfAm (>60 ml/min/1.73 sqM) Est GFR (CKD-EPI)NonAf (>60 ml/min/1.73 sqM) Glucose (74-99) mg/dL Plasma Lactic Acid Moe (0.7-2.0) mmol/L Calcium (8.4-10.2) mg/dL Total Bilirubin (0.2-1.3) mg/dL AST (14-36) U/L ALT (4-34) U/L Alkaline Phosphatase (38-126) U/L Total Protein (6.3-8.2) g/dL Albumin (3.5-5.0) g/dL Lipase (23-300) U/L Urine Color Yellow Urine Appearance Clear (Clear) Urine pH 7.0 (5.0-8.0) Ur Specific [place] 1.022 (1.001-1.035) Urine Protein Negative (Negative) Urine Glucose (UA) Negative (Negative) Urine Ketones Trace H (Negative) Urine Blood Negative (Negative) Urine Nitrite Negative (Negative) Urine Bilirubin Negative (Negative) Urine Urobilinogen <2.0 (<2.0) mg/dL Ur Leukocyte Esterase Moderate H (Negative) Urine RBC 1 (0-5) /hpf Urine WBC 2 (0-5) /hpf Ur Squamous Epith Cells 5 H (0-4) /hpf Urine Mucus Rare H (None) /hpf Urine HCG, Qual Not Detected (Not Detectd) 06/14/24 06/14/24 Range/Units 10:27 10:27 WBC (3.8-10.6) k/uL RBC (3.80-5.40) m/uL Hgb (11.4-16.0) gm/dL Hct (34.0-46.0) % MCV (80.0-100.0) fL MCH (25.0-35.0) pg MCHC (31.0-37.0) g/dL RDW (11.5-15.5) % Plt Count (150-450) k/uL MPV Neutrophils % % Lymphocytes % % Monocytes % % Eosinophils % % Basophils % % Neutrophils # (1.3-7.7) k/uL Lymphocytes # (1.0-4.8) k/uL Monocytes # (0-1.0) k/uL Eosinophils # (0-0.7) k/uL Basophils # (0-0.2) k/uL Sodium 137 (137-145) mmol/L Potassium 4.2 (3.5-5.1) mmol/L Chloride 105 (98-107) mmol/L Carbon Dioxide 25 (22-30) mmol/L Anion Gap 7 mmol/L BUN 16 (7-17) mg/dL Creatinine 0.60 (0.52-1.04) mg/dL Est GFR (CKD-EPI)AfAm >90 (>60 ml/min/1.73 sqM) Est GFR (CKD-EPI)NonAf >90 (>60 ml/min/1.73 sqM) Glucose 99 (74-99) mg/dL Plasma Lactic Acid Moe 0.9 (0.7-2.0) mmol/L Calcium 9.3 (8.4-10.2) mg/dL Total Bilirubin 0.3 (0.2-1.3) mg/dL AST 18 (14-36) U/L ALT 24 (4-34) U/L Alkaline Phosphatase 74 (38-126) U/L Total Protein 7.4 (6.3-8.2) g/dL Albumin 4.5 (3.5-5.0) g/dL Lipase 302 H (23-300) U/L Urine Color Urine Appearance (Clear) Urine pH (5.0-8.0) Ur Specific [place] (1.001-1.035) Urine Protein (Negative) Urine Glucose (UA) (Negative) Urine Ketones (Negative) Urine Blood (Negative) Urine Nitrite (Negative) Urine Bilirubin (Negative) Urine Urobilinogen (<2.0) mg/dL Ur Leukocyte Esterase (Negative) Urine RBC (0-5) /hpf Urine WBC (0-5) /hpf Ur Squamous Epith Cells (0-4) /hpf Urine Mucus (None) /hpf Urine HCG, Qual (Not Detectd) Disposition Clinical Impression: Abdominal pain Disposition: ADMITTED IP TO THIS [facility] Time of Disposition: 12:15
[2024-06-14] MEDS: ONDANSETRON 4 MG/2 ML VIAL IVP STA (10:35)
[2024-06-14 10:50] LABS: Basophils % (A) 1 %; Eosinophils # (A) 0.1 k/uL (0-0.7); Eosinophils % (A) 2 %; HGB 12.7 gm/dL (11.4-16.0); Lymphocytes # (A) 1.4 k/uL (1.0-4.8); Lymphocytes % (A) 25 %; MCH 27.7 pg (25.0-35.0); MCHC 31.7 g/dL (31.0-37.0); MCV 87.6 fL (80.0-100.0); Mean Platelet Volume 7.8; Monocytes # (A) 0.3 k/uL (0-1.0); Monocytes % (A) 6 %; Neutrophils # (A) 3.9 k/uL (1.3-7.7); Neutrophils % (A) 66 %; Platelet Count 286 k/uL (150-450); RBC 4.57 m/uL (3.80-5.40); RDW 13.5 % (11.5-15.5); WBC 5.9 k/uL (3.8-10.6)
[2024-06-14 10:59] LABS: ALT 24 U/L (4-34); AST 18 U/L (14-36); African American GFR (CKD) >90 (>60 ml/min/1.73 sqM); Albumin 4.5 g/dL (3.5-5.0); Alkaline Phosphatase 74 U/L (38-126); Anion Gap 7 mmol/L; Blood Urea Nitrogen 16 mg/dL (7-17); Calcium 9.3 mg/dL (8.4-10.2); Carbon Dioxide 25 mmol/L (22-30); Chloride 105 mmol/L (98-107); Glucose 99 mg/dL (74-99); Lipase 302 U/L (23-300); Non-African American GFR(CKD) >90 (>60 ml/min/1.73 sqM); Potassium 4.2 mmol/L (3.5-5.1); Sodium 137 mmol/L (137-145); Total Bilirubin 0.3 mg/dL (0.2-1.3); Total Protein 7.4 g/dL (6.3-8.2)
[2024-06-14 11:03] LABS: Appearance,Urine Clear (Clear); Bilirubin,Urine Negative (Negative); Blood,Urine Negative (Negative); Color,Urine Yellow; Glucose,Urine (UA) Negative (Negative); Ketones,Urine Trace (Negative); Leukocyte Esterase,Urine Moderate (Negative); Mucus,Urine Rare /hpf; Nitrite,Urine Negative (Negative); Protein,Urine Negative (Negative); RBC,Urine 1 /hpf (0-5); Specific Gravity,Urine 1.022 (1.001-1.035); Squamous Epithelial Cell,Urine 5 /hpf (0-4); Urobilinogen,Urine <2.0 mg/dL (<2.0); WBC,Urine 2 /hpf (0-5)
[2024-06-14] MEDS: HYDROmorphone 0.5 MG/0.5 ML SYRINGE IVP STA (11:06)
--- NOTE | 2024-06-14 11:52 | CT ---
EXAMINATION TYPE: CT abdomen pelvis w con DATE OF EXAM: 06/14/2024 COMPARISON: None CLINICAL INDICATION: Female, 29 years old with history of Abdominal pain, hernia versus ulceration; P HH, Gastric sleeve x 9 months ago, scope recently done. abdominal pain TECHNIQUE: Performed with Oral Contrast and with IV Contrast, patient injected with 100 mL of Isovue 300. CT DLP: 540.[address] CTDI: mGy Automated exposure control for dose reduction was used. FINDINGS: The lung bases are clear. The gallbladder is normal without distention, wall thickening, pericholecystic fluid or gallstones. T here is no biliary ductal dilatation. There is no focal mass or organomegaly involving the liver, pancreas, spleen or adrenal glands. There is no solid renal mass or hydronephrosis and there is homogeneous contrast enhancement of the r enal parenchyma. The caliber the abdominal aorta is normal is no retroperitoneal adenopathy or hemorr renee. There are postsurgical changes involving the stomach consistent with a history of gastric sleeve proc edure. There is an irregular thick walled fluid collection in the left upper quadrant adjacent to the stomach remnant of indeterminate etiology. It is uncertain whether this represents isolated portion of the [place] stomach or abscess. There is no bowel obstruction. There is no free intraperitoneal air or fluid. No pelvic mass, free fluid, abscess or adenopathy. The osseous structures and soft tissues are intact. IMPRESSION: Postsurgical changes of gastric sleeve procedure. There is a thick-walled fluid-filled structure in t he left upper quadrant of indeterminate etiology as described above. There is no bowel obstruction, f ree intraperitoneal air or fluid [facility], Workstation: PAM 06/14/2024 11:50 AM
[2024-06-14] MEDS ORDERED: NALOXONE 0.4 MG/ML 1 ML VIAL IV PRN (12:15)
[2024-06-14] MEDS ORDERED: ONDANSETRON 4 MG/2 ML VIAL IVP PRN (12:15)
[2024-06-14] MEDS: SODIUM CHLORIDE 0.9% 1,000 ML IV SCH (13:23)
[2024-06-14] MEDS: HYDROmorphone 0.5 MG/0.5 ML SYRINGE IVP PRN (15:20)
[2024-06-14] MEDS: PANTOPRAZOLE 40 MG/10 ML VIAL IVP SCH (15:23)
--- NOTE | 2024-06-14 18:19 | P.GSHP ---
History of Present Illness H&P Date: 06/14/24 CHIEF COMPLAINT: Intractable abdominal pain HISTORY OF PRESENT ILLNESS: The patient is a [id number] female who is status post gastric bypass 10 months ago, August 2023. At that time, patient weighed 219 pounds. She presents with 105 pound weight loss lifetime. Patient did have prior ulcers identified in January 2024. She was treated with Carafate and Protonix. Patient returns with new epigastric intractable abdominal pain. She reports difficulty keeping textured foods now with a burning sensation. She recently had a blighted ovum with subsequent miscarriage in the last 5 months. Due to intractable abdominal pain and history of gastric bypass as well as ulcers, patient is admitted. PAST MEDICAL HISTORY: See list and reviewed PAST SURGICAL HISTORY: See list and reviewed MEDICATIONS: See list and reviewed ALLERGIES: See list and reviewed SOCIAL HISTORY: See list and reviewed FAMILY HISTORY: See list and reviewed REVIEW OF ORGAN SYSTEMS: CONSTITUTIONAL: No fevers or chills. Intentional weight loss 105 pounds, lifetime. EYES: Denies any trouble with vision. Wears glasses. HEENT: No difficulties with hearing. No nosebleeds. No difficulty swallowing. RESPIRATORY: Denies pneumonia. Denies any troubles with breathing or dyspnea on exertion. CARDIOVASCULAR: Denies any chest pain, palpitations, or recent heart attacks. GASTROINTESTINAL: As above. History of gastric ulcers. History of gastroesophageal reflux disease. GENITOURINARY: Denies any blood in urine or increased urinary frequency. NEUROLOGICAL: Denies any numbness or tingling along the distal extremities. No seizure disorders or headaches. MUSCULOSKELETAL: Denies any back pain, stiffness or joint arthritis. SKIN: No current skin cancer. No rash. PSYCHIATRIC: Denies current depression or suicidal thoughts. ENDOCRINE: Denies current thyroid disorders. Denies any blood sugar glucose intolerance. HEME/LYMPHATIC: Denies any lumps and bumps around the neck. No recent deep venous thrombosis. ALLERGY/IMMUNOLOGY: No immunoglobulin therapy. No immune deficiencies. BREAST: Denies current breast lumps, pain or nipple discharge. PHYSICAL EXAM: VITALS: Reviewed CONSTITUTIONAL: Well developed and in no acute distress. EYES: Conjuctivae without sclera icterus. Extraocular movements grossly intact. HEAD, EARS, NOSE, THROAT: Moist buccal mucosa. Head is atraumatic, normocephalic. Hears conversational speech. No nasal drainage. Wears glasses. NECK: Supple. No JV distention. No thyroidomegaly. RESPIRATORY: Non-labored respirations and equal bilateral excursions. No gross wheezes. CARDIOVASCULAR: Palpable 2+ radial pulses. ABDOMEN: Tender epigastrium. No diffuse peritonitis. LYMPH: No neck lymphadenopathy. MUSCULOSKELETAL: No clubbing cyanosis or edema SKIN: Warm and well perfused with good skin turgor. NEUROLOGIC: Cranial nerves II through XII grossly intact. No focal or lateralizing signs. PSYCH: Appropriate affect. Alert and oriented to person, place and time. Displays appropriate insight. CLINCAL LABS: Reviewed. WBC and comprehensive metabolic panel within normal limits IMAGING: Independently reviewed. CT of the abdomen and pelvis independent revi ew demonstrates telescoping of bowel at the epigastrium/left upper quadrant highly suspicious for intussusception. No diffuse free air identified. This is my independent interpretation. RADIOLOGY: Report reviewed CT abdomen pelvis demonstrates postsurgical changes of gastric bypass with fluid collection at left upper quadrant. RECORDS: previous old records reviewed of upper endoscopy January 2024 demonstrating acute gastrojejunal ulcers. ASSESSMENT: 1. Intractable epigastric abdominal pain 2. Gastrojejunal ulcers 3. Abnormal CT scan for intussusception 4. History of gastric bypass PLAN: 1. IV fluid hydration. 2. Recommend admission due to intractable abdominal pain with abnormal CT scan for intussusception which will need surgical intervention 3. Recommend upper endoscopy due to personal history of gastrojejunal ulcers to exclude localized perforation 4. Protonix 40 mg twice daily 5. Shared decision making performed with cautious fluid intake as well as IV fluid hydration and surgical intervention Past Medical History Past Medical History: Asthma, GERD/Reflux Additional Past Medical History / Comment(s): "I've been having pressure upper abd area with nausea and vomiting." Severe GERD. Hx tachycardia at age 18. Seasonal allergies, mild asthma. 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 Past Anesthesia/Blood Transfusion Reactions: No Reported Reaction, Postoperative Nausea & Vomiting (PONV) Additional Past Anesthesia/Blood Transfusion Reaction / Comment(s): No hx of blood transfusion. "I'm spacey when I first wake up." "I had a hard time waking up from the anesthesia." Past Psychological History: No Psychological Hx Reported Smoking Status: Never smoker, Vaper Past Alcohol Use History: None Reported Past Drug Use History: Marijuana - Past Family History Father History Unknown: Yes Family Medical History: No Reported History Additional Family Medical History / Comment(s): Bangura's esophagus. Mother Family Medical History: No Reported History Additional Family Medical History / Comment(s): Bangura's esophagus. Medications and Allergies Home Medications Medication Instructions Recorded Confirmed Type Albuterol Inhaler [Ventolin Hfa 2 puff INHALATION RT-QID PRN 10/28/22 06/14/24 History Inhaler] Multivitamins, Thera [Multivitamin 1 tab PO DAILY 10/11/23 06/14/24 History (formulary)] Sucralfate [Carafate] 1 gm PO ACHS 01/18/24 06/14/24 History Fluticasone Propion/Salmeterol 1 puff INHALATION RT-BID PRN 06/14/24 06/14/24 History [Wixela 100-50 Inhub] Omeprazole 40 mg PO DAILY 06/14/24 06/14/24 History Allergies Allergy/AdvReac Type Severity Reaction Status Date / Time fluoxetine [From Prozac] Allergy Rash/Hives Verified 06/14/24 12:30 ibuprofen Allergy Rash/Hives Verified 06/14/24 12:30 naproxen Allergy Rash/Hives Verified 06/14/24 12:30 NSAIDS (Non-Steroidal Allergy Rash/Hives Verified 06/14/24 12:30 Anti-Inflamma Surgical - Exam Vital Signs Temp Pulse Resp BP Pulse Ox 98.2 F 100 18 104/65 99 06/14/24 10:14 06/14/24 10:14 06/14/24 10:14 06/14/24 10:14 06/14/24 10:14 Results - Labs 06/14/24 10:27 06/14/24 10:27 Abnormal Lab Results - Last 24 Hours (Table) 06/14/24 06/14/24 Range/Units 10:27 10:27 Lipase 302 H (23-300) U/L Urine Ketones Trace H (Negative) Ur Leukocyte Esterase Moderate H (Negative) Ur Squamous Epith Cells 5 H (0-4) /hpf Urine Mucus Rare H (None) /hpf Diabetes panel 06/14/24 Range/Units 10:27 Sodium 137 (137-145) mmol/L Potassium 4.2 (3.5-5.1) mmol/L Chloride 105 (98-107) mmol/L Carbon Dioxide 25 (22-30) mmol/L BUN 16 (7-17) mg/dL Creatinine 0.60 (0.52-1.04) mg/dL Glucose 99 (74-99) mg/dL Calcium 9.3 (8.4-10.2) mg/dL AST 18 (14-36) U/L ALT 24 (4-34) U/L Alkaline Phosphatase 74 (38-126) U/L Total Protein 7.4 (6.3-8.2) g/dL Albumin 4.5 (3.5-5.0) g/dL Calcium panel 06/14/24 Range/Units 10:27 Calcium 9.3 (8.4-10.2) mg/dL Albumin 4.5 (3.5-5.0) g/dL Pituitary panel 06/14/24 Range/Units 10:27 Sodium 137 (137-145) mmol/L Potassium 4.2 (3.5-5.1) mmol/L Chloride 105 (98-107) mmol/L Carbon Dioxide 25 (22-30) mmol/L BUN 16 (7-17) mg/dL Creatinine 0.60 (0.52-1.04) mg/dL Glucose 99 (74-99) mg/dL Calcium 9.3 (8.4-10.2) mg/dL Adrenal panel 06/14/24 Range/Units 10:27 Sodium 137 (137-145) mmol/L Potassium 4.2 (3.5-5.1) mmol/L Chloride 105 (98-107) mmol/L Carbon Dioxide 25 (22-30) mmol/L BUN 16 (7-17) mg/dL Creatinine 0.60 (0.52-1.04) mg/dL Glucose 99 (74-99) mg/dL Calcium 9.3 (8.4-10.2) mg/dL Total Bilirubin 0.3 (0.2-1.3) mg/dL AST 18 (14-36) U/L ALT 24 (4-34) U/L Alkaline Phosphatase 74 (38-126) U/L Total Protein 7.4 (6.3-8.2) g/dL Albumin 4.5 (3.5-5.0) g/dL
[2024-06-15 02:07] VITALS: RESP 18
--- NOTE | 2024-06-15 14:43 | P.DS ---
Providers Date of admission: 06/14/24 11:20 Expected date of discharge: 06/15/24 Attending physician: Shannan Huang Primary care physician: Erika Qureshi Hospital Course: The patient was admitted with epigastric pain and was scheduled for an EGD with possible lrobotic lysis of adhesions on Monday. Due to family issues, the patient requested discharge. I offered an EGD today but she has to leave. She will call Dr Milan office for follow up. Plan - Discharge Summary Discharge Rx Participant: No New Discharge Prescriptions: No Action Albuterol Inhaler [Ventolin Hfa Inhaler] 2 puff INHALATION RT-QID PRN PRN Reason: Shortness Of Breath Sucralfate [Carafate] 1 gm PO ACHS Omeprazole 40 mg PO DAILY Multivitamins, Thera [Multivitamin (formulary)] 1 tab PO DAILY Fluticasone Propion/Salmeterol [Wixela 100-50 Inhub] 1 puff INHALATION RT-BID PRN PRN Reason: Shortness Of Breath Discharge Medication List Albuterol Inhaler [Ventolin Hfa Inhaler] 2 puff INHALATION RT-QID PRN 10/28/22 [History] Multivitamins, Thera [Multivitamin (formulary)] 1 tab PO DAILY 10/11/23 [History] Sucralfate [Carafate] 1 gm PO ACHS 01/18/24 [History] Fluticasone Propion/Salmeterol [Wixela 100-50 Inhub] 1 puff INHALATION RT-BID PRN 06/14/24 [History] Omeprazole 40 mg PO DAILY 06/14/24 [History] Follow up Appointment(s)/Referral(s): Erika Qureshi MD [Primary Care Provider] - 1-2 Days (Dr Webb) Activity/Diet/Wound Care/Special Instructions: Liquid Discharge Disposition: HOME SELF-CARE
[2024-06-15 16:35] VITALS: BP 111/73; PULSE 75; TEMP 98.7
== END 2024-06-15 16:48 | disposition home or self-care (01) ==
LOC: EC 10:05 → 4SSUR 11:20
PROVIDERS: ADMIT Surgery Plastic and Reconstructive Surgery; ATTEND Surgery Plastic and Reconstructive Surgery
DX: R10.13 Epigastric pain (principal); K28.9 Gastrojejunal ulcer, unspecified as acute or chronic, without hemorrhage or perforation; K56.1 Intussusception; K21.9 Gastro-esophageal reflux disease without esophagitis; J45.909 Unspecified asthma, uncomplicated; Z98.84 Bariatric surgery status; Z79.899 Other long term (current) drug therapy; Z88.8 Allergy status to other drugs, medicaments and biological substances; Z88.6 Allergy status to analgesic agent
CPT/HCPCS: 96376 ×3; 96374; 96375; 99285; 36415; 80053; 83605; 83690; 85025; 81001; 81025; 74177; G0378 ×2; J2405; J1171 ×2; Q9967; J2470 ×2

== ENCOUNTER → 2024-06-14 | Outpatient (CLI) | payer OTHER ==
[2024-06-14 10:25] VITALS: BP 119/73; PULSE 86; TEMP 98.5; BMI 20.8
--- NOTE | 2024-06-14 11:52 | P.BASOAP ---
Subjective Progress Note Date: 06/14/24 Patient presents with intractable right upper quadrant epigastric pain. She has presents a history of acute gastrojejunal ulcers 6 months ago. She comes with moderate weight loss and BMI of normal. Patient does report difficulty with eating any foods. Due to the severity abdominal pain and history of gastric bypass, immediate admission to the emergency room was described. Will need upper endoscopy including diagnostic laparoscopy given her severity of abdominal pain. I personally spoke to ER provider where CT scan is being ordered as well. Objective - Vital Signs Vital signs: Vital Signs Temp 98.5 F 06/14/24 10:20 Pulse 86 06/14/24 10:20 Resp BP 119/73 06/14/24 10:20 Pulse Ox FiO2 Intake & Output 06/13/24 06/14/24 06/14/24 18:59 06:59 18:59 Weight 51.71 kg Assessment/Plan Plan: Date: 06/14/24 Initial Weight: 88.904 kg Initial BMI: 35.8 Current Weight: 51.71 kg Current BMI: 20.8 Type of Surgery: Total Volume in Band: Previous Volume: Volume Removed: Volume Added: Band Size:
== END ==
LOC: BARWHC3 09:20
PROVIDERS: ATTEND Surgery Plastic and Reconstructive Surgery
DX: E66.01 Morbid (severe) obesity due to excess calories (principal); Z68.20 Body mass index [BMI] 20.0-20.9, adult; R10.11 Right upper quadrant pain; R10.13 Epigastric pain; Z87.19 Personal history of other diseases of the digestive system; Z88.6 Allergy status to analgesic agent; Z88.8 Allergy status to other drugs, medicaments and biological substances
CPT/HCPCS: 99211

== ENCOUNTER 2024-06-20 12:57 | Inpatient (IN) | payer OTHER ==
[2024-06-20] MEDS ORDERED: NALOXONE 0.4 MG/ML 1 ML VIAL IV PRN (13:45)
[2024-06-20 13:49] LABS: Basophils # (A) 0.1 k/uL (0-0.2); Basophils % (A) 1 %; Eosinophils # (A) 0.4 k/uL (0-0.7); Eosinophils % (A) 5 %; HCT 39.7 % (34.0-46.0); HGB 12.5 gm/dL (11.4-16.0); Lymphocytes # (A) 1.6 k/uL (1.0-4.8); Lymphocytes % (A) 23 %; MCHC 31.4 g/dL (31.0-37.0); MCV 89.2 fL (80.0-100.0); Mean Platelet Volume 7.5; Monocytes # (A) 0.4 k/uL (0-1.0); Monocytes % (A) 6 %; Neutrophils # (A) 4.5 k/uL (1.3-7.7); Neutrophils % (A) 63 %; Platelet Count 260 k/uL (150-450); RBC 4.45 m/uL (3.80-5.40); RDW 13.1 % (11.5-15.5)
--- NOTE | 2024-06-20 13:55 | ED ---
General Adult HPI - General Chief complaint: Abdominal Pain Stated complaint: Abd pain Time Seen by Provider: 06/20/24 13:15 Source: patient, RN notes reviewed, old records reviewed Mode of arrival: ambulatory Limitations: no limitations - History of Present Illness Initial comments: 29-year-old female sent in for abdominal pain, nausea vomiting, and known intussusception according to her general surgeon Dr. Huang. She is planned for surgery tomorrow. Patient has had persistent nausea vomiting. No fever. Her pain is predominantly upper. - Related Data Home Medications Medication Instructions Recorded Confirmed Albuterol Inhaler [Ventolin Hfa 2 puff INHALATION RT-QID PRN 10/28/22 06/14/24 Inhaler] Multivitamins, Thera [Multivitamin 1 tab PO DAILY 10/11/23 06/14/24 (formulary)] Sucralfate [Carafate] 1 gm PO ACHS 01/18/24 06/14/24 Fluticasone Propion/Salmeterol 1 puff INHALATION RT-BID PRN 06/14/24 06/14/24 [Wixela 100-50 Inhub] Omeprazole 40 mg PO DAILY 06/14/24 06/14/24 Allergies Allergy/AdvReac Type Severity Reaction Status Date / Time fluoxetine [From Prozac] Allergy Rash/Hives Verified 06/14/24 12:30 ibuprofen Allergy Rash/Hives Verified 06/14/24 12:30 naproxen Allergy Rash/Hives Verified 06/14/24 12:30 NSAIDS (Non-Steroidal Allergy Rash/Hives Verified 06/14/24 12:30 Anti-Inflamma Review of Systems ROS Statement: Those systems with pertinent positive or pertinent negative responses have been documented in the HPI. ROS Other: All systems not noted in ROS Statement are negative. Past Medical History Past Medical History: Asthma, GERD/Reflux Additional Past Medical History / Comment(s): "I've been having pressure upper abd area with nausea and vomiting." Severe GERD. Hx tachycardia at age 18. Seasonal allergies, mild asthma. 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 Past Anesthesia/Blood Transfusion Reactions: No Reported Reaction, Postoperative Nausea & Vomiting (PONV) Additional Past Anesthesia/Blood Transfusion Reaction / Comment(s): No hx of blo od transfusion. "I'm spacey when I first wake up." "I had a hard time waking up from the anesthesia." Past Psychological History: No Psychological Hx Reported Smoking Status: Never smoker, Vaper Past Alcohol Use History: None Reported Past Drug Use History: Marijuana - Past Family History Father History Unknown: Yes Family Medical History: No Reported History Additional Family Medical History / Comment(s): Bangura's esophagus. Mother Family Medical History: No Reported History Additional Family Medical History / Comment(s): Bangura's esophagus. General Exam Limitations: no limitations General appearance: alert, in no apparent distress Head exam: Present: atraumatic, normocephalic Eye exam: Present: normal appearance, PERRL ENT exam: Present: mucous membranes dry Neck exam: Present: normal inspection. Absent: tenderness, meningismus Respiratory exam: Present: normal lung sounds bilaterally. Absent: respiratory distress, wheezes Cardiovascular Exam: Present: regular rate, normal rhythm GI/Abdominal exam: Absent: distended Neurological exam: Present: alert, oriented X3, CN II-XII intact, normal gait. Absent: motor sensory deficit Psychiatric exam: Present: normal affect, normal mood Skin exam: Present: warm, dry, intact. Absent: cyanosis, diaphoretic Course Vital Signs 06/20/24 13:20 Temperature 98.4 F Pulse Rate 93 Respiratory 16 Rate Blood Pressure 123/83 O2 Sat by Pulse 100 Oximetry Medical Decision Making - Medical Decision Making Was pt. sent in by a medical professional or institution (, PA, LENDING MANAGER, urgent care, hospital, or custodial...) When possible be specific @ -No Did you speak to anyone other than the patient for history (EMS, parent, family, police, friend...)? What history was obtained from this source @ -No Did you review nursing and triage notes (agree or disagree)? Why? @ -I reviewed and agree with nursing and triage notes Were old charts reviewed (outside hosp., previous admission, EMS record, old EKG, old radiological studies, urgent care reports/EKG's, custodial records)? Report findings @ -No old charts were reviewed Differential Abdominal Pain Women: Appendicitis, Cholecystitis, diverticulosis, ischemic bowel, pancreatitis, hepatitis, UTI, gastroenteritis, AAA, incarcerated hernia, bowel obstruction, constipation, inflammatory bowel, hepatitis, peptic ulcer disease, splenic infarction, perforated viscus, vulvitis, ovarian torsion, PID, kidney stone, placenta abruption, this is not meant to be an all-inclusive list EKG interpreted by me (3pts min.). @ -As above X-rays interpreted by me (1pt min.). @ -None done CT interpreted by me (1pt min.). @ -None done U/S interpreted by me (1pt. min.). @ -None done What testing was considered but not performed or refused? (CT, X-rays, U/S, labs)? Why? @ -None What meds were considered but not given or refused? Why? @ -None Did you discuss the management of the patient with other professionals (professionals i.e. , PA, LENDING MANAGER, lab, RT, psych nurse, director of social work, production line assembler, teacher, chief media officer, sample case porter)? Give summary @ -Sent in by Dr. Huang, Dr. Huang aware will admit patient. Was smoking cessation discussed for >3mins.? @ -No Was critical care preformed (if so, how long)? @ -No Were there social determinants of health that impacted care today? How? (Homelessness, low income, unemployed, alcoholism, drug addiction, transportation, low edu. Level, literacy, decrease access to med. care, skilled nursing, rehab)? @ -No Was there de-escalation of care discussed even if they declined (Discuss DNR or withdrawal of care, Hospice)? DNR status @ -No What co-morbidities impacted this encounter? (DM, HTN, Smoking, COPD, CAD, Cancer, CVA, ARF, Chemo, Hep., AIDS, mental health diagnosis, sleep apnea, morbid obesity)? @ -[Previous bariatric surgery 29-year-old female with nausea vomiting, abdominal pain, plan for Was patient admitted / discharged? Hospital course, mention meds given and route, prescriptions, significant lab abnormalities, going to OR and other pertinent info. @ -Surgery tomorrow. IV established, laboratory studies obtained, symptomatic treatment provided. Patient admitted to her general surgeon Dr. Huang. Undiagnosed new problem with uncertain prognosis? @ -[No Drug Therapy requiring intensive monitoring for toxicity (Heparin, Nitro, Insulin, Cardizem)? @ -No Were any procedures done? @ -No Diagnosis/symptom? @ -Intractable abdominal pain, nausea vomiting, intussusception. Acute, or Chronic, or Acute on Chronic? @Acute Uncomplicated (without systemic symptoms) or Complicated (systemic symptoms)? @ -Default Side effects of treatment? @ -No Exacerbation, Progression, or Severe Exacerbation? @ -No Poses a threat to life or bodily function? How? (Chest pain, USA, MT, pneumonia, PE, COPD, DKA, ARF, appy, cholecystitis, CVA, Diverticulitis, Homicidal, Suicidal, threat to staff... and all critical care pts) @ -No - Lab Data Result diagrams: 06/20/24 13:30 Lab Results 06/20/24 Range/Units 13:30 WBC 7.0 (3.8-10.6) k/uL RBC 4.45 (3.80-5.40) m/uL Hgb 12.5 (11.4-16.0) gm/dL Hct 39.7 (34.0-46.0) % MCV 89.2 (80.0-100.0) fL MCH 28.0 (25.0-35.0) pg MCHC 31.4 (31.0-37.0) g/dL RDW 13.1 (11.5-15.5) % Plt Count 260 (150-450) k/uL MPV 7.5 Neutrophils % 63 % Lymphocytes % 23 % Monocytes % 6 % Eosinophils % 5 % Basophils % 1 % Neutrophils # 4.5 (1.3-7.7) k/uL Lymphocytes # 1.6 (1.0-4.8) k/uL Monocytes # 0.4 (0-1.0) k/uL Eosinophils # 0.4 (0-0.7) k/uL Basophils # 0.1 (0-0.2) k/uL Disposition Clinical Impression: Abdominal pain, Intractable nausea and vomiting Disposition: ADMITTED IP TO THIS [facility] Condition: Stable Is patient prescribed a controlled substance at d/c from ED?: No Referrals: Erika Qureshi MD [Primary Care Provider] - 1-2 days Time of Disposition: 13:54
--- NOTE | 2024-06-20 14:03 | P.GSHP ---
History of Present Illness H&P Date: 06/20/24 CHIEF COMPLAINT: Intractable abdominal pain HISTORY OF PRESENT ILLNESS: The patient is a 29-year-old female who reports intractable abdominal pain now diffuse in nature. Patient has personal history of gastric ulcers. Incidentally, she had imaging studies done 1 week ago demonstrating intussusception. Patient had left the hospital prior to any treatment due to personal issues. She presents now with severe abdominal pain. PAST MEDICAL HISTORY: See list and reviewed PAST SURGICAL HISTORY: See list and reviewed MEDICATIONS: See list and reviewed ALLERGIES: See list and reviewed SOCIAL HISTORY: See list and reviewed FAMILY HISTORY: See list and reviewed REVIEW OF ORGAN SYSTEMS: CONSTITUTIONAL: No fevers or chills. Intentional weight loss 105 pounds, lifetime. EYES: Denies any trouble with vision. Wears glasses. HEENT: No difficulties with hearing. No nosebleeds. No difficulty swallowing. RESPIRATORY: Denies pneumonia. Denies any troubles with breathing or dyspnea on exertion. CARDIOVASCULAR: Denies any chest pain, palpitations, or recent heart attacks. GASTROINTESTINAL: As above. History of gastric ulcers. History of gastroesophageal reflux disease. GENITOURINARY: Denies any blood in urine or increased urinary frequency. NEUROLOGICAL: Denies any numbness or tingling along the distal extremities. No seizure disorders or headaches. MUSCULOSKELETAL: Denies any back pain, stiffness or joint arthritis. SKIN: No current skin cancer. No rash. PSYCHIATRIC: Denies current depression or suicidal thoughts. ENDOCRINE: Denies current thyroid disorders. Denies any blood sugar glucose intolerance. HEME/LYMPHATIC: Denies any lumps and bumps around the neck. No recent deep venous thrombosis. ALLERGY/IMMUNOLOGY: No immunoglobulin therapy. No immune deficiencies. BREAST: Denies current breast lumps, pain or nipple discharge. PHYSICAL EXAM: VITALS: Reviewed CONSTITUTIONAL: Well developed and in no acute distress. EYES: Conjuctivae without sclera icterus. Extraocular movements grossly intact. HEAD, EARS, NOSE, THROAT: Moist buccal mucosa. Head is atraumatic, normocephalic. Hears conversational speech. No nasal drainage. Wears glasses. NECK: Supple. No JV distention. No thyroidomegaly. RESPIRATORY: Non-labored respirations and equal bilateral excursions. No gross wheezes. CARDIOVASCULAR: Palpable 2+ radial pulses. ABDOMEN: Tender epigastrium. No diffuse peritonitis. LYMPH: No neck lymphadenopathy. MUSCULOSKELETAL: No clubbing cyanosis or edema SKIN: Warm and well perfused with good skin turgor. NEUROLOGIC: Cranial nerves II through XII grossly intact. No focal or lateralizing signs. PSYCH: Appropriate affect. Alert and oriented to person, place and time. Displays appropriate insight. CLINCAL LABS: Reviewed. Pending IMAGING: Independently reviewed. CT of the abdomen and pelvis independent review demonstrates telescoping of bowel at the epigastrium/left upper quadrant highly suspicious for intussusception. No diffuse free air identified. This is my independent interpretation. RADIOLOGY: Report reviewed CT abdomen pelvis demonstrates postsurgical changes of gastric bypass with fluid collection at left upper quadrant. RECORDS: previous old records reviewed of upper endoscopy January 2024 demonstrating acute gastrojejunal ulcers. ASSESSMENT: 1. Intractable epigastric abdominal pain due to intussusception 2. Gastrojejunal ulcers 3. Abnormal CT scan for intussusception 4. History of gastric bypass PLAN: 1. IV fluid hydration. 2. Recommend admission due to intractable abdominal pain with abnormal CT scan for intussusception which will need surgical intervention 3. Recommend upper endoscopy due to personal history of gastrojejunal ulcers to exclude localized perforation Past Medical History Past Medical History: Asthma, GERD/Reflux Additional Past Medical History / Comment(s): "I've been having pressure upper abd area with nausea and vomiting." Severe GERD. Hx tachycardia at age 18. Seasonal allergies, mild asthma. 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 Past Anesthesia/Blood Transfusion Reactions: No Reported Reaction, Postoperative Nausea & Vomiting (PONV) Additional Past Anesthesia/Blood Transfusion Reaction / Comment(s): No hx of blood transfusion. "I'm spacey when I first wake up." "I had a hard time waking up from the anesthesia." Past Psychological History: No Psychological Hx Reported Smoking Status: Never smoker, Vaper Past Alcohol Use History: None Reported Past Drug Use History: Marijuana - Past Family History Father History Unknown: Yes Family Medical History: No Reported History Additional Family Medical History / Comment(s): Bangura's esophagus. Mother Family Medical History: No Reported History Additional Family Medical History / Comment(s): Bangura's esophagus. Medications and Allergies Home Medications Medication Instructions Recorded Confirmed Type Albuterol Inhaler [Ventolin Hfa 2 puff INHALATION RT-QID PRN 10/28/22 06/14/24 History Inhaler] Multivitamins, Thera [Multivitamin 1 tab PO DAILY 10/11/23 06/14/24 History (formulary)] Sucralfate [Carafate] 1 gm PO ACHS 01/18/24 06/14/24 History Fluticasone Propion/Salmeterol 1 puff INHALATION RT-BID PRN 06/14/24 06/14/24 History [Wixela 100-50 Inhub] Omeprazole 40 mg PO DAILY 06/14/24 06/14/24 History Allergies Allergy/AdvReac Type Severity Reaction Status Date / Time fluoxetine [From [facility]] Allergy Rash/Hives Verified 06/14/24 12:30 ibuprofen Allergy Rash/Hives Verified 06/14/24 12:30 naproxen Allergy Rash/Hives Verified 06/14/24 12:30 NSAIDS (Non-Steroidal Allergy Rash/Hives Verified 06/14/24 12:30 Anti-Inflamma Surgical - Exam Vital Signs Temp Pulse Resp BP Pulse Ox 98.4 F 93 16 123/83 100 06/20/24 13:20 06/20/24 13:20 06/20/24 13:20 06/20/24 13:20 06/20/24 13:20 Results - Labs 06/20/24 13:30
[2024-06-20 14:09] LABS: ALT 18 U/L (4-34); AST 20 U/L (14-36); African American GFR (CKD) >90 (>60 ml/min/1.73 sqM); Albumin 4.6 g/dL (3.5-5.0); Alkaline Phosphatase 67 U/L (38-126); Anion Gap 6 mmol/L; Blood Urea Nitrogen 17 mg/dL (7-17); Calcium 9.4 mg/dL (8.4-10.2); Carbon Dioxide 25 mmol/L (22-30); Chloride 106 mmol/L (98-107); Glucose 96 mg/dL (74-99); Non-African American GFR(CKD) >90 (>60 ml/min/1.73 sqM); Potassium 3.9 mmol/L (3.5-5.1); Sodium 137 mmol/L (137-145); Total Bilirubin 0.3 mg/dL (0.2-1.3); Total Protein 7.2 g/dL (6.3-8.2)
[2024-06-20 14:12] LABS: Appearance,Urine Clear (Clear); Bilirubin,Urine Negative (Negative); Blood,Urine Negative (Negative); Color,Urine Light Yellow; Glucose,Urine (UA) Negative (Negative); Ketones,Urine 1+ (Negative); Leukocyte Esterase,Urine Negative (Negative); Nitrite,Urine Negative (Negative); PH, Urine 5.5 (5.0-8.0); Protein,Urine Negative (Negative); Specific Gravity,Urine 1.024 (1.001-1.035); Urobilinogen,Urine <2.0 mg/dL (<2.0)
[2024-06-20 14:43] LABS: Partial Thromboplastin Time 24.8 sec (22.0-30.0); Prothrombin Time 10.9 sec (10.0-12.5)
[2024-06-20] MEDS: ONDANSETRON 4 MG/2 ML VIAL IVP PRN (14:57)
[2024-06-20] MEDS: SODIUM CHLORIDE 0.9% 1,000 ML IV SCH (14:57)
[2024-06-20] MEDS: HYDROmorphone 0.5 MG/0.5 ML SYRINGE IVP PRN (14:58)
[2024-06-20] MEDS ORDERED: PROPOFOL 10 MG/ML 20 ML VIAL IV ONE (18:40)
[2024-06-20] MEDS ORDERED: LIDOCAINE 1% INJ 10MG/ML (20 ML MDV) ONE (18:40)
[2024-06-20] MEDS ORDERED: ALBUTEROL NEBULIZED 2.5 MG/3 ML INHALATION PRN (19:08)
[2024-06-20] MEDS: SODIUM CHLORIDE 0.9% 500 ML 500 ML IV ONE (19:09)
--- NOTE | 2024-06-20 19:30 | P.PCN ---
Date of Procedure: 06/20/24 Description of Procedure: PREOPERATIVE DIAGNOSIS: Intractable abdominal pain, epigastric, left upper quadrant Intractable nausea and vomiting History of gastric ulcers Intussusception POSTOPERATIVE DIAGNOSIS: Acute gastric ulcer with partial obstruction Foreign body gastrojejunal anastomosis Gastrojejunal ulcer with obstruction OPERATION: Esophagogastrojejunoscopy with removal of foreign body and biopsy gastric pouch using cold forceps SURGEON: Shannan Huang MD ANESTHESIA: MAC. INDICATIONS: The patient is a 29-year-old female who presents with worsening epigastric abdominal pain including CT findings of intussusception. She has personal history of gastric ulcers with a normal CT for fluid collection near her gastric pouch. Benefits and risks of the procedure were described. Informed consent was obtained. DESCRIPTION: The patient was brought into the endoscopy suite and laid in the left lateral decubitus position. A Olympus gastroscope was carefully passed along the posterior oropharynx into the stomach. Gastric pouch was identified with partial obstruction of the gastrojejunal anastomosis. Foreign body was identified at the anastomosis consistent with residual stapler. The gastric pouch was 5 cm in length. No evidence of erosive esophagitis was found. The scope was advanced into the jejunum where 8 mm large gastrojejunal ulcer was found without bleeding. Due to this finding, dilation was avoided. Multiple ulcerations were identified without acute bleeding. Foreign body was removed using cold forcep biopsy of a stapler with residual gastric tissue. No full- thickness injury was found along the mucosa. The stomach was desufflated. The patient tolerated the procedure well. FINDINGS: Gastric pouch 5 cm Acute large gastrojejunal ulceration without bleeding and obstruction, 8 mm LA grade A erosive esophagitis. Foreign body at gastrojejunal anastomosis, stapler removed using cold forcep biopsies with biopsy obtained of gastric pouch RECOMMENDATIONS: Carafate 1 g 3 times daily Omeprazole 40 mg twice daily Repeat upper endoscopy 3 to 4 weeks Liquid diet in the interim between dilations
[2024-06-20] MEDS: PANTOPRAZOLE 40 MG/10 ML VIAL IVP SCH (20:23)
[2024-06-20] MEDS: SUCRALFATE 1 GM TAB PO SCH (20:24)
[2024-06-20] MEDS: SYMBICORT 80-4.5 MCG INHALER INHALATION SCH (21:23)
[2024-06-20] MEDS: HYDROmorphone 1 MG/ML 1 ML SYRINGE IVP PRN (23:31)
[2024-06-21] MEDS: ACETAMINOPHEN IV (For NPO) 1,000 MG in EMPTY BAG 1 BAG IVPB SCH (00:22)
[2024-06-21] MEDS: IV FLUID CONTINUATION 1,000 ML IV ONE (09:47)
[2024-06-21] MEDS: MIDAZOLAM 2 MG/2 ML VIAL IV ONE (10:42)
[2024-06-21] MEDS: DEXAMETHASONE SOD PHOSPHATE 4 MG/ML 1 ML VIAL IVP STA (10:57)
[2024-06-21] MEDS ORDERED: ePHEDrine 50 MG/ML 1 ML VIAL ONE (12:19)
[2024-06-21] MEDS ORDERED: SUCCINYLCHOLINE CHLORIDE 200 MG/10 ML VIAL IV ONE (12:19)
[2024-06-21] MEDS ORDERED: SODIUM CHLORIDE 0.9% (PF) 10 ML VIAL ONE (12:19)
[2024-06-21] MEDS ORDERED: ROPIVACAINE 5 MG/ML 30 ML VIAL ONE (12:19)
[2024-06-21] MEDS ORDERED: MIDAZOLAM 2 MG/2 ML VIAL ONE (12:19)
[2024-06-21] MEDS ORDERED: fentaNYL (PF) 50 MCG/ML 2 ML AMP ONE (12:19)
[2024-06-21] MEDS ORDERED: ROCURONIUM 10 MG/ML (5 ML VIAL) IV ONE (12:19)
[2024-06-21] MEDS ORDERED: NEOSTIGMINE 1 MG/ML 10 ML VIAL ONE (12:19)
[2024-06-21] MEDS ORDERED: LIDOCAINE 1% INJ 10MG/ML (20 ML MDV) ONE (12:19)
[2024-06-21] MEDS ORDERED: GLYCOPYRROLATE 0.2 MG/ML 2 ML VIAL ONE (12:19)
[2024-06-21] MEDS ORDERED: PROPOFOL 10 MG/ML 20 ML VIAL IV ONE (12:19)
[2024-06-21] MEDS ORDERED: DEXAMETHASONE SOD PHOSPHATE 4 MG/ML 1 ML VIAL ONE (12:19)
[2024-06-21] MEDS ORDERED: HEPARIN SODIUM,PORCINE 5,000 UNIT/ML 1 ML VIAL ONE (12:19)
[2024-06-21] MEDS: ceFAZolin 1,000 MG VIAL IVPB ONE (12:24)
[2024-06-21] MEDS: LIDOCAINE 1%-EPI 1:100,000 20 ML VIAL SQ ONE (12:58)
[2024-06-21] MEDS: LACTATED RINGERS 1,000 ML IV ONE (13:00)
[2024-06-21] MEDS: SIMETHICONE 40 MG/0.6 ML DROPS 2,000 MG/30 ML BOTTLE PO SCH (17:38)
--- NOTE | 2024-06-21 21:41 | P.OP ---
Date of Procedure: 06/21/24 Description of Procedure: SURGEON: DIDIER CHANG MD PREOPERATIVE DIAGNOSES: 1. Intussusception with intractable abdominal pain 2. Intractable epigastric, left upper quadrant abdominal pain 3. History of gastric bypass, status post massive weight loss over 120 pounds 4. Acute gastrojejunal ulcer with obstruction, without bleeding 5. Asthma 6. Gastroesophageal reflux disease 7. Peritoneal adhesions POSTOPERATIVE DIAGNOSES: 1. Intussusception with intractable abdominal pain 2. Intractable epigastric, left upper quadrant abdominal pain 3. History of gastric bypass, status post massive weight loss over 120 pounds 4. Acute gastrojejunal ulcer with obstruction, without bleeding 5. Asthma 6. Gastroesophageal reflux disease 7. Peritoneal adhesions OPERATION: 1. Robotic-assisted da Yoandy Xi laparoscopic reduction of intussusception, jejunojejunostomy 2. Robotic-assisted da Yoandy Xi laparoscopic lysis of adhesions ESTIMATED BLOOD LOSS: 5 mL. SPECIMENS REMOVED: None. COMPLICATIONS: None. OPERATIVE FINDINGS: 1. No ventral hernias identified. 2. Moderately dilated splenic flexure including sigmoid colon and transverse colon, gaseous distention 3. Abnormal adhesion jejunojejunostomy with lead point, intussusception 4. Complete scarring of Wharton defect and jejunojejunostomy mesenteric defect 5. Appendix with appendicolith without hyperemia or acute appendicitis 6. Moderate gaseous distention of sigmoid colon, redundant with discussed sigmoid volvulus 7. Normal terminal ileum and cecum unremarkable. INDICATIONS: The patient is a 29-year-old female who presents with severe intractable left upper quadrant and epigastric abdominal pain. Physical exam including diagnostic images highly suspicious for intussusception. Surgical intervention with diagnostic laparoscopy, lysis of adhesions were described. Informed consent was obtained. Robotic assisted laparoscopic approach was described. Benefits and risks of the procedure including but not limited to bleeding, infection, injury to the small bowel was described. Informed consent was obtained. DESCRIPTION OF PROCEDURE: Patient was brought to the operating room, placed in supine position. After general induction, the abdomen had been prepped and draped in standard sterile fashion. The robotic da Yoandy XI system was primed. After a timeout protocol was performed, the patient had been prepped and draped in standard sterile fashion. The robot was docked along the right lateral abdomen. The patient was repositioned in with right side up. Please note prior to docking of the robot; however, a 5 mm 0 degrees laparoscopic trocar entry was performed along the left upper quadrant. The abdomen was insufflated to 15 mmHg pressure which she tolerated well. Diagnostic laparoscopy was performed. Distention of the sigmoid colon, transverse colon including splenic flexure was identified. Next, three 8 mm robotic ports were placed along the right lateral abdominal wall. The camera 8-mm port was maintained along mid-lateral abdomen. Please note that the ports were placed at least 10 to 15 cm away from the target anatomy. Instruments including graspers and vessel sealer were interchanged by the audiology assistant. I had sat at the console. No evidence of incisional hernia was identified. The appendix was filled with appendicolith without hyperemia or acute appendicitis. The small bowel from the madalyn limb to distal ileum was inspected. The small bowel was investigated from the terminal ileum to the ligament of Treitz with finding of jejunojejunostomy rotated along the retroperitoneum of the left upper the abdomen consistent with the patient's pain. Abnormal adhesions to the jejunojejunostomy was identified and divided with intussusception at the common channel. Abnormal adhesion along the jejunojejunostomy was lysed using scissors with cautery to intussusception. No herniation of bowel was found along the Wharton defect or jejunojejunostomy mesenteric defect as a defects were completely closed. Moderate gaseous distention of sigmoid colon was identified with partial sigmoid volvulus secondary to highly redundant colon. The terminal ileum and cecum was unremarkable. The small bowel was viable.The robot was undocked. All pneumoperitoneum instruments were evacuated from the abdominal cavity. The incisions were reapproximated using 4-0 Monocryl in an interrupted subcuticular fashion. Please note along the trocar sites, local anesthetic was placed as a field block prior to insertion of all instruments. Exofin was applied to the skin. At the end of the procedure needle, sponge, and instrument count had been verified correct by the waste minimization technician. The patient was transferred to postanesthesia care unit in stable condition.
[2024-06-22] MEDS: ENOXAPARIN 30 MG/0.3 ML SYRINGE SQ SCH (08:02)
--- NOTE | 2024-06-22 12:59 | P.DS ---
Providers Date of admission: 06/20/24 13:46 Expected date of discharge: 06/22/24 Attending physician: Shannan Huang Primary care physician: Erika Qureshi [facility] Course: POSTOPERATIVE DIAGNOSES: 1. Intussusception with intractable abdominal pain 2. Intractable epigastric, left upper quadrant abdominal pain 3. History of gastric bypass, status post massive weight loss over 120 pounds 4. Acute gastrojejunal ulcer with obstruction, without bleeding 5. Asthma 6. Gastroesophageal reflux disease 7. Peritoneal adhesions CHIEF COMPLAINT: Intractable abdominal pain with intussusception and ulcers HISTORY OF PRESENT ILLNESS: The patient is a 29-year-old female admitted for intractable abdominal pain. Findings include acute gastrojejunal ulcer as well as intussusception. Patient underwent lysis of adhesions including upper endoscopy during this hospitalization. She was placed on Carafate 3 times daily including omeprazole 40 mg twice daily. Diagnostic laparoscopy demonstrated adhesions creating intussusception at jejunojejunostomy. After lysis of adhesions, this morning patient reported her pre-existing pain at the time of admission is completely resolved. She complains of appropriate mild incisional pain. Patient is eager to go home. She is tolerating diet. ROS: No reports of nausea and vomiting. No bowel movements. No fevers or chills. No new chest pain. No productive sputum PHYSICAL EXAM: VITAL SIGNS: Reviewed CONSTITUTIONAL: Well developed and in no acute distress. EYES: Conjuctivae without sclera icterus. Extraocular movements grossly intact. HEAD, EARS, NOSE, THROAT: Moist buccal mucosa. Head is atraumatic, normocephalic. Hears conversational speech. No nasal drainage. RESPIRATORY: Non-labored respirations and equal bilateral excursions. CARDIOVASCULAR: Palpable 2+ radial pulses. ABDOMEN: Incisions clean dry and intact. MUSCULOSKELETAL: No gross deformity of the lower extremities noted. No clubbing. No cyanosis. SKIN: Good skin turgor. Well perfused. NEUROLOGIC: Cranial nerves II through XII grossly intact. No focal or lateralizing signs. PSYCH: Appropriate affect. Alert and oriented to person, place and time. CLINICAL LABS: Reviewed. CBC lites within normal limits on admission. PLAN: 1. Liquid to pured diet described for the next 1 to 2 weeks. May advance diet as abdominal pain improves. 2. Close outpatient follow-up at the bariatric center in 1 week. 3. Medications at increased risk for ulcerations including her inhalers and steroid inhalers were reviewed for which caution as described. 4. Clinically stable for discharge. Procedures: 06/20/24 OPERATION: Esophagogastrojejunoscopy with removal of foreign body and biopsy gastric pouch using cold forceps 06/21/24 OPERATION: 1. Robotic-assisted da Yoandy Xi laparoscopic reduction of intussusception, jejunojejunostomy 2. Robotic-assisted da Yoandy Xi laparoscopic lysis of adhesions ESTIMATED BLOOD LOSS: 5 mL. SPECIMENS REMOVED: None. COMPLICATIONS: None. OPERATIVE FINDINGS: 1. No ventral hernias identified. 2. Moderately dilated splenic flexure including sigmoid colon and transverse colon, gaseous distention 3. Abnormal adhesion jejunojejunostomy with lead point, intussusception 4. Complete scarring of Wharton defect and jejunojejunostomy mesenteric defect 5. Appendix with appendicolith without hyperemia or acute appendicitis 6. Moderate gaseous distention of sigmoid colon, redundant with discussed sigmoid volvulus 7. Normal terminal ileum and cecum unremarkable. Patient Condition at Discharge: Stable Plan - Discharge Summary New Discharge Prescriptions: New Omeprazole [PriLOSEC] 40 mg PO DAILY #60 cap Sucralfate [Carafate] 1 gm PO TID #90 tablet Simethicone [Gas-X] 125 mg PO AC-TID PRN #20 capsule PRN Reason: Pain Acetaminophen Tab [Tylenol Tab] 1,000 mg PO Q6HR PRN #30 tablet PRN Reason: Pain Continue Albuterol Inhaler [Ventolin Hfa Inhaler] 2 puff INHALATION RT-QID PRN PRN Reason: Shortness Of Breath Multivitamins, Thera [Multivitamin (formulary)] 1 tab PO DAILY Fluticasone Propion/Salmeterol [Wixela 100-50 Inhub] 1 puff INHALATION RT-BID PRN PRN Reason: Shortness Of Breath Discontinued Sucralfate [Carafate] 1 gm PO ACHS Omeprazole 40 mg PO DAILY Discharge Medication List Albuterol Inhaler [Ventolin Hfa Inhaler] 2 puff INHALATION RT-QID PRN 10/28/22 [History] Multivitamins, Thera [Multivitamin (formulary)] 1 tab PO DAILY 10/11/23 [History] Fluticasone Propion/Salmeterol [Wixela 100-50 Inhub] 1 puff INHALATION RT-BID PRN 06/14/24 [History] Acetaminophen Tab [Tylenol Tab] 1,000 mg PO Q6HR PRN #30 tablet 06/22/24 [Rx] Omeprazole [PriLOSEC] 40 mg PO DAILY #60 cap 06/22/24 [Rx] Simethicone [Gas-X] 125 mg PO AC-TID PRN #20 capsule 06/22/24 [Rx] Sucralfate [Carafate] 1 gm PO TID #90 tablet 06/22/24 [Rx] Follow up Appointment(s)/Referral(s): Erika Qureshi MD [Primary Care Provider] [place] - 06/26/24 4:00 pm Patient Instructions/Handouts: Deep Vein Thrombosis Prevention (DC), Lysis of Abdominal Adhesions (GEN) Activity/Diet/Wound Care/Special Instructions: CAUTION FOR LONG DRIVES OR AIRPLANE RIDES OVER 60 MINUTES FOR THE NEXT 2 WEEKS, 07/06/24, DUE TO HIGH RISK OF PULMONARY EMBOLISM/DVTs May drive in 72 hrs, 06/25/24 Liquid diet advised. Pured diet advised. No lifting over 10 pounds in 2 weeks until 07/06/24 May shower. No bath tub soaks for two weeks until 07/06/24 Use Tylenol, simethicone scheduled for the next 24-48 hours for best pain relief. Use ice along incisions for today to prevent swelling. Discharge Disposition: HOME SELF-CARE
[2024-06-22 14:19] VITALS: BP 124/77; PULSE 70; RESP 15; TEMP 97.9
--- NOTE | 2024-06-23 16:15 | P.ANPRN ---
Procedure Note - Anesthesia - Nerve Block Performed Bilateral Erector Spinae Single Time Out Performed: Yes Date of Procedure: 06/21/24 Procedure Start Time: 10: Procedure Stop Time: :43 Location of Patient: PreOp Indication: Acute Post-Operative Pain, Requested by Surgeon Sedation Type: Sedate with meaningful contact maintained Preparation: Sterile Prep Position: Prone Needle Types: Pajunk Needle Gauge: 21 Ultrasound used to visualize needle placement: Yes Ultrasound used to observe medication spread: Yes Blood Aspirated: No Pain Paresthesia on Injection Noted: No Resistance on Injection: Normal Image Stored and Saved: Yes Events: Uneventful and Well Tolerated (Ropivacaine 0.5% 15 cc per normal saline 10 cc plus dexamethasone 4 mg given bilaterally at L1)
== END 2024-06-22 14:28 | disposition home or self-care (01) | DRG 224 ==
LOC: EC 12:57 → 4SSUR 13:46
PROVIDERS: ADMIT Surgery Plastic and Reconstructive Surgery; ATTEND Surgery Plastic and Reconstructive Surgery
PROC: 0DB68ZX Excision of Stomach, Via Natural or Artificial Opening Endoscopic, Diagnostic (ICD-10-PCS; 2024-06-20)
PROC: 0DCA8ZZ Extirpation of Matter from Jejunum, Via Natural or Artificial Opening Endoscopic (ICD-10-PCS; 2024-06-20)
PROC: 8E0W4CZ Robotic Assisted Procedure of Trunk Region, Percutaneous Endoscopic Approach (ICD-10-PCS; principal; 2024-06-21 10:50)
PROC: 0DNA4ZZ Release Jejunum, Percutaneous Endoscopic Approach (ICD-10-PCS; principal; 2024-06-21 10:50)
PROC: 0DSA4ZZ Reposition Jejunum, Percutaneous Endoscopic Approach (ICD-10-PCS; principal; 2024-06-21 10:50)
DX: K25.3 Acute gastric ulcer without hemorrhage or perforation (principal); K56.1 Intussusception; K66.0 Peritoneal adhesions (postprocedural) (postinfection); K28.3 Acute gastrojejunal ulcer without hemorrhage or perforation; K38.1 Appendicular concretions; R63.4 Abnormal weight loss; J45.909 Unspecified asthma, uncomplicated; K21.9 Gastro-esophageal reflux disease without esophagitis; Z87.11 Personal history of peptic ulcer disease; Z98.84 Bariatric surgery status; Z79.899 Other long term (current) drug therapy; Z68.20 Body mass index [BMI] 20.0-20.9, adult; Z28.310 Unvaccinated for COVID-19; Z28.21 Immunization not carried out because of patient refusal; Z88.6 Allergy status to analgesic agent; Z88.8 Allergy status to other drugs, medicaments and biological substances
CPT/HCPCS: 36415; 43247; 64999; 80053; 81003; 81025; 83605; 85025; 85610; 85730; 94640; 96361; 96374; 96375; 99285

== ENCOUNTER → 2024-06-26 | Outpatient (CLI) | payer OTHER ==
[2024-06-26 16:06] VITALS: BP 107/64; PULSE 87; RESP 16; TEMP 98.3
--- NOTE | 2024-06-26 16:23 | P.BASOAP ---
Subjective Progress Note Date: 06/26/24 Tramadol prescribed. Presribed for pain. FU with dilatin. Doing well after surgery. Objective - Vital Signs Vital signs: Vital Signs Temp 98.3 F 06/26/24 15:51 Pulse 87 06/26/24 15:51 Resp 16 06/26/24 15:51 BP 107/64 06/26/24 15:51 Pulse Ox FiO2 Intake & Output 06/25/24 06/26/24 06/26/24 18:59 06:59 18:59 Weight 52.758 kg Assessment/Plan Plan: Date: 06/26/24 Initial Weight: 88.904 kg Initial BMI: Current Weight: 52.758 kg Current BMI: Type of Surgery: Total Volume in Band: Previous Volume: Volume Removed: Volume Added: Band Size:
== END ==
LOC: BARWHC3 15:35
PROVIDERS: ATTEND Surgery Plastic and Reconstructive Surgery
DX: E66.01 Morbid (severe) obesity due to excess calories (principal); Z88.8 Allergy status to other drugs, medicaments and biological substances; Z88.6 Allergy status to analgesic agent; Z68.21 Body mass index [BMI] 21.0-21.9, adult
CPT/HCPCS: 99211

== ENCOUNTER 2024-07-14 02:08 | Inpatient (IN) | payer OTHER ==
--- NOTE | 2024-07-14 02:40 | ED ---
Abdominal Pain HPI - General Source: patient, EMS, RN notes reviewed Mode of arrival: EMS Limitations: no limitations <Anna Strauss - Last Filed: 07/14/24 03:59> <Tc Guerrero - Last Filed: 07/14/24 07:05> - General Chief Complaint: Abdominal Pain Stated Complaint: abd pain Time Seen by Provider: 07/14/24 02:16 - History of Present Illness Initial Comments: This is a 29-year-old female with a history of Joe en Y procedure presenting to the emergency department via transfer from [facility] with concern for a small bowel obstruction versus ileus. Patient had recent small bowel adhesion removal surgery completed in the middle of June with Dr. Huang over the past week she has had worsening epigastric abdominal pain with radiation into her back and mid abdomen. She endorses nausea with no reported emesis. She denies fevers, reports chills. She is passing gas with last bowel movement being yesterday. She denies hematochezia, melena, urinary changes. Patient is transferred for continuation of care. (Anna Strauss) - Related Data Home Medications Medication Instructions Recorded Confirmed Albuterol Inhaler [Ventolin Hfa 2 puff INHALATION RT-QID PRN 10/28/22 06/26/24 Inhaler] Multivitamins, Thera [Multivitamin 1 tab PO DAILY 10/11/23 06/26/24 (formulary)] Fluticasone Propion/Salmeterol 1 puff INHALATION RT-BID PRN 06/14/24 06/26/24 [Wixela 100-50 Inhub] Previous Rx's Medication Instructions Recorded Acetaminophen Tab [Tylenol Tab] 1,000 mg PO Q6HR PRN #30 tablet 06/22/24 Omeprazole [PriLOSEC] 40 mg PO DAILY #60 cap 06/22/24 Sucralfate [Carafate] 1 gm PO TID #90 tablet 06/22/24 traMADol HCl [Ultram] 50 mg PO Q6H PRN #30 tab 06/26/24 Allergies Allergy/AdvReac Type Severity Reaction Status Date / Time fluoxetine [From Prozac] Allergy Rash/Hives Verified 06/26/24 15:51 ibuprofen Allergy Rash/Hives Verified 12/18/24 15:51 naproxen Allergy Rash/Hives Verified 06/26/24 15:51 NSAIDS (Non-Steroidal Allergy Rash/Hives Verified 06/26/24 15:51 Anti-Inflamma Review of Systems ROS Other: All systems not noted in ROS Statement are negative. <Anna Strauss - Last Filed: 07/14/24 03:59> ROS Other: All systems not noted in ROS Statement are negative. <Tc Guerrero - Last Filed: 07/14/24 07:05> ROS Statement: Those systems with pertinent positive or pertinent negative responses have been documented in the HPI. Past Medical History Past Medical History: Asthma, GERD/Reflux Additional Past Medical History / Comment(s): "I've been having pressure upper abd area with nausea and vomiting." Severe GERD. Hx tachycardia at age 18. Seasonal allergies, mild asthma. 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 Past Anesthesia/Blood Transfusion Reactions: No Reported Reaction, Postoperative Nausea & Vomiting (PONV) Additional Past Anesthesia/Blood Transfusion Reaction / Comment(s): No hx of blood transfusion. "I'm spacey when I first wake up." "I had a hard time waking up from the anesthesia." Past Psychological History: No Psychological Hx Reported Additional Psychological History / Comment(s): pt denies hx Smoking Status: Never smoker Past Alcohol Use History: None Reported Additional Past Alcohol Use History / Comment(s): Quit vaping quit Jul 2023. Past Drug Use History: Marijuana Additional Drug Use History / Comment(s): THC use occasionally. Usually vape Marijuana. - Past Family History Father History Unknown: Yes Family Medical History: No Reported History Additional Family Medical History / Comment(s): Bangura's esophagus. Mother Family Medical History: No Reported History Additional Family Medical History / Comment(s): Bangura's esophagus. <Anna Strauss - Last Filed: 07/14/24 03:59> General Exam Limitations: no limitations General appearance: alert, in no apparent distress ENT exam: Present: normal exam, mucous membranes moist Neck exam: Present: normal inspection. Absent: tenderness, meningismus, lymphadenopathy Cardiovascular Exam: Present: regular rate, normal rhythm, normal heart sounds. Absent: systolic murmur, diastolic murmur, rubs, gallop, clicks GI/Abdominal exam: Present: soft, tenderness (epigastric), normal bowel sounds. Absent: distended, guarding, rebound, rigid, pulsatile mass, hernia Extremities exam: Present: normal inspection, full ROM, normal capillary refill. Absent: tenderness, pedal edema, joint swelling, calf tenderness Back exam: Present: normal inspection Skin exam: Present: warm, dry, intact, normal color. Absent: rash <Anna Strauss - Last Filed: 07/14/24 03:59> Course Vital Signs 07/14/24 07/14/24 02:10 05:41 Temperature 98.6 F Pulse Rate 89 70 Respiratory 19 18 Rate Blood Pressure 114/73 104/70 O2 Sat by Pulse 99 99 Oximetry Medical Decision Making - Lab Data Result diagrams: 07/14/24 02:47 07/14/24 02:47 <Anna Strauss - Last Filed: 07/14/24 03:59> - Lab Data Result diagrams: 07/14/24 02:47 07/14/24 02:47 <Tc Guerrero - Last Filed: 07/14/24 07:05> - Medical Decision Making Was pt. sent in by a medical professional or institution ([facility]UCY [facility], HERBOLOGIST, urgent care, hospital, or correction...) When possible be specific @ -[No] Did you speak to anyone other than the patient for history (EMS, parent, family, police, friend...)? What history was obtained from this source @ -[No] Did you review nursing and triage notes (agree or disagree)? Why? @ -[I reviewed and agree with nursing and triage notes] Were old charts reviewed (outside hosp., previous admission, EMS record, old EKG, old radiological studies, urgent care reports/EKG's, correction records)? Report findings @ -Patient's outside CT that was completed on 04/03 which was concerning for small bowel obstruction versus ileus Differential Diagnosis (chest pain, altered mental status, abdominal pain women, abdominal pain men, vaginal bleeding, weakness, fever, dyspnea, syncope, headache, dizziness, GI bleed, back pain, seizure, CVA, palpatations, mental he alth, musculoskeletal)? @ -Differential Abdominal Pain Women: Appendicitis, Cholecystitis, diverticulosis, ischemic bowel, pancreatitis, hepatitis, UTI, gastroenteritis, AAA, incarcerated hernia, bowel obstruction, constipation, inflammatory bowel, hepatitis, peptic ulcer disease, splenic infarction, perforated viscus, vulvitis, ovarian torsion, PID, kidney stone, placenta abruption, this is not meant to be an all-inclusive list EKG interpreted by me (3pts min.). @ -none X-rays interpreted by me (1pt min.). @ -[None done] CT interpreted by me (1pt min.). @ -[None done] U/S interpreted by me (1pt. min.). @ -[None done] What testing was considered but not performed or refused? (CT, X-rays, U/S, labs)? Why? @ -[None] What meds were considered but not given or refused? Why? @ -[None] Did you discuss the management of the patient with other professionals (professionals i.e. , PA, HERBOLOGIST, lab, RT, psych nurse, social service worker, roll changer, teacher, campus safety officer, case picker)? Give summary @ -spoke with rhinestone setter general surgeon, Dr. Lorenz, CT scan findings concerning for small bowel obstruction versus ileus. It is recommended by surgeon that CT scan is repeated with IV contrast and with oral contrast. Was smoking cessation discussed for >3mins.? @ -[No] Was critical care preformed (if so, how long)? @ -[No] Were there social determinants of health that impacted care today? How? (Homelessness, low income, unemployed, alcoholism, drug addiction, transportation, low edu. Level, literacy, decrease access to med. care, care home, rehab)? @ -[No] Was there de-escalation of care discussed even if they declined (Discuss DNR or withdrawal of care, Hospice)? DNR status @ -[No] What co-morbidities impacted this encounter? (DM, HTN, Smoking, COPD, CAD, Cancer, CVA, ARF, Chemo, Hep., AIDS, mental health diagnosis, sleep apnea, morbid obesity)? @ -[None] Was patient admitted / discharged? Hospital course, mention meds given and route, prescriptions, significant lab abnormalities, going to OR and other pertinent info. @ -29-year-old female presenting with epigastric abdominal pain and nausea. Patient is transferred from outside emergency department. Abdominal examination remarkable for tenderness to the epigastric region. Vitals are stable. Lab work is obtained. It is recommended by general surgeon the patient undergo repeat CT imaging of the abdomen with oral contrast and with IV contrast. CBC and CMP unremarkable. patient is signed out to my attending, Dr. guerrero, pending CT imaging results and disposition. Undiagnosed new problem with uncertain prognosis? @ -[No] Drug Therapy requiring intensive monitoring for toxicity (Heparin, Nitro, Insulin, Cardizem)? @ -[No] Were any procedures done? @ -[No] Diagnosis/symptom? @ -[default] Acute, or Chronic, or Acute on Chronic? @ -[default] Uncomplicated (without systemic symptoms) or Complicated (systemic symptoms)? @ -[default] Side effects of treatment? @ -[No] Exacerbation, Progression, or Severe Exacerbation? @ -[No] Poses a threat to life or bodily function? How? (Chest pain, USA, GA, pneumonia, PE, COPD, DKA, ARF, appy, cholecystitis, CVA, Diverticulitis, Homicidal, Suicidal, threat to staff... and all critical care pts) @ -[No] (Anna Strauss) Patient care signed out to me by physician healthcare administrative assistant, Anna. Plan at signout was to follow-up with pending CT imaging. CT shows ileus. Case discussed Dr. Lorenz. Patient will be admitted for further care. (Tc Guerrero) - Lab Data Lab Results 07/14/24 07/14/24 07/14/24 Range/Units 02:47 02:47 03:13 WBC 10.6 (3.8-10.6) k/uL RBC 4.27 (3.80-5.40) m/uL Hgb 11.9 (11.4-16.0) gm/dL Hct 37.3 (34.0-46.0) % MCV 87.5 (80.0-100.0) fL MCH 27.9 (25.0-35.0) pg MCHC 31.8 (31.0-37.0) g/dL RDW 13.5 (11.5-15.5) % Plt Count 255 (150-450) k/uL MPV 7.1 Neutrophils % 60 % Lymphocytes % 28 % Monocytes % 6 % Eosinophils % 4 % Basophils % 1 % Neutrophils # 6.4 (1.3-7.7) k/uL Lymphocytes # 3.0 (1.0-4.8) k/uL Monocytes # 0.6 (0-1.0) k/uL Eosinophils # 0.4 (0-0.7) k/uL Basophils # 0.1 (0-0.2) k/uL Sodium 137 (137-145) mmol/L Potassium 3.7 (3.5-5.1) mmol/L Chloride 104 (98-107) mmol/L Carbon Dioxide 22 (22-30) mmol/L Anion Gap 11 mmol/L BUN 18 H (7-17) mg/dL Creatinine 0.65 (0.52-1.04) mg/dL Est GFR (CKD-EPI)AfAm >90 (>60 ml/min/1.73 sqM) Est GFR (CKD-EPI)NonAf >90 (>60 ml/min/1.73 sqM) Glucose 83 (74-99) mg/dL Calcium 8.4 (8.4-10.2) mg/dL Total Bilirubin 0.2 (0.2-1.3) mg/dL AST 80 H (14-36) U/L ALT 37 H (4-34) U/L Alkaline Phosphatase 69 (38-126) U/L Total Protein 6.2 L (6.3-8.2) g/dL Albumin 3.7 (3.5-5.0) g/dL Urine Color Yellow Urine Appearance Clear (Clear) Urine pH 6.5 (5.0-8.0) Ur Specific [place] >1.050 H (1.001-1.035) Urine Protein Trace H (Negative) Urine Glucose (UA) Negative (Negative) Urine Ketones Trace H (Negative) Urine Blood Negative (Negative) Urine Nitrite Negative (Negative) Urine Bilirubin Negative (Negative) Urine Urobilinogen <2.0 (<2.0) mg/dL Ur Leukocyte Esterase Small H (Negative) Urine RBC 1 (0-5) /hpf Urine WBC 12 H (0-5) /hpf Ur Squamous Epith Cells 5 H (0-4) /hpf Urine Bacteria Rare H (None) /hpf Urine Mucus Rare H (None) /hpf Urine HCG, Qual (Not Detectd) 07/14/24 Range/Units 03:13 WBC (3.8-10.6) k/uL RBC (3.80-5.40) m/uL Hgb (11.4-16.0) gm/dL Hct (34.0-46.0) % MCV (80.0-100.0) fL MCH (25.0-35.0) pg MCHC (31.0-37.0) g/dL RDW (11.5-15.5) % Plt Count (150-450) k/uL MPV Neutrophils % % Lymphocytes % % Monocytes % % Eosinophils % % Basophils % % Neutrophils # (1.3-7.7) k/uL Lymphocytes # (1.0-4.8) k/uL Monocytes # (0-1.0) k/uL Eosinophils # (0-0.7) k/uL Basophils # (0-0.2) k/uL Sodium (137-145) mmol/L Potassium (3.5-5.1) mmol/L Chloride (98-107) mmol/L Carbon Dioxide (22-30) mmol/L Anion Gap mmol/L BUN (7-17) mg/dL Creatinine (0.52-1.04) mg/dL Est GFR (CKD-EPI)AfAm (>60 ml/min/1.73 sqM) Est GFR (CKD-EPI)NonAf (>60 ml/min/1.73 sqM) Glucose (74-99) mg/dL Calcium (8.4-10.2) mg/dL Total Bilirubin (0.2-1.3) mg/dL AST (14-36) U/L ALT (4-34) U/L Alkaline Phosphatase (38-126) U/L Total Protein (6.3-8.2) g/dL Albumin (3.5-5.0) g/dL Urine Color Urine Appearance (Clear) Urine pH (5.0-8.0) Ur Specific [place] (1.001-1.035) Urine Protein (Negative) Urine Glucose (UA) (Negative) Urine Ketones (Negative) Urine Blood (Negative) Urine Nitrite (Negative) Urine Bilirubin (Negative) Urine Urobilinogen (<2.0) mg/dL Ur Leukocyte Esterase (Negative) Urine RBC (0-5) /hpf Urine WBC (0-5) /hpf Ur Squamous Epith Cells (0-4) /hpf Urine Bacteria (None) /hpf Urine Mucus (None) /hpf Urine HCG, Qual Not Detected (Not Detectd) Disposition <Anna Strauss - Last Filed: 07/14/24 03:59> Decision Time: 07:05 <Tc Guerrero - Last Filed: 07/14/24 07:05> Clinical Impression: Ileus Disposition: ADMITTED IP TO THIS HOSP Condition: Fair Referrals: Shannan Huang MD [Primary Care Provider] - 1-2 days
[2024-07-14 02:54] LABS: Basophils # (A) 0.1 k/uL (0-0.2); Basophils % (A) 1 %; Eosinophils # (A) 0.4 k/uL (0-0.7); Eosinophils % (A) 4 %; HCT 37.3 % (34.0-46.0); HGB 11.9 gm/dL (11.4-16.0); Lymphocytes % (A) 28 %; MCH 27.9 pg (25.0-35.0); MCHC 31.8 g/dL (31.0-37.0); MCV 87.5 fL (80.0-100.0); Mean Platelet Volume 7.1; Monocytes # (A) 0.6 k/uL (0-1.0); Monocytes % (A) 6 %; Neutrophils # (A) 6.4 k/uL (1.3-7.7); Neutrophils % (A) 60 %; Platelet Count 255 k/uL (150-450); RBC 4.27 m/uL (3.80-5.40); RDW 13.5 % (11.5-15.5); WBC 10.6 k/uL (3.8-10.6)
[2024-07-14] MEDS: ONDANSETRON 4 MG/2 ML VIAL IVP STA (03:02)
[2024-07-14] MEDS: IOPAMIDOL CONTRAST (ORAL USE) VIAL PO PRN (03:03)
[2024-07-14] MEDS: MORPHINE SULFATE 4 MG/ML SYRINGE IVP STA (03:03)
[2024-07-14 03:04] LABS: ALT 37 U/L (4-34); AST 80 U/L (14-36); African American GFR (CKD) >90 (>60 ml/min/1.73 sqM); Albumin 3.7 g/dL (3.5-5.0); Alkaline Phosphatase 69 U/L (38-126); Anion Gap 11 mmol/L; Blood Urea Nitrogen 18 mg/dL (7-17); Calcium 8.4 mg/dL (8.4-10.2); Carbon Dioxide 22 mmol/L (22-30); Chloride 104 mmol/L (98-107); Glucose 83 mg/dL (74-99); Non-African American GFR(CKD) >90 (>60 ml/min/1.73 sqM); Potassium 3.7 mmol/L (3.5-5.1); Sodium 137 mmol/L (137-145); Total Bilirubin 0.2 mg/dL (0.2-1.3); Total Protein 6.2 g/dL (6.3-8.2)
[2024-07-14 03:59] LABS: Appearance,Urine Clear (Clear); Bacteria,Urine Rare /hpf; Bilirubin,Urine Negative (Negative); Blood,Urine Negative (Negative); Color,Urine Yellow; Glucose,Urine (UA) Negative (Negative); Ketones,Urine Trace (Negative); Leukocyte Esterase,Urine Small (Negative); Mucus,Urine Rare /hpf; Nitrite,Urine Negative (Negative); PH, Urine 6.5 (5.0-8.0); Protein,Urine Trace (Negative); RBC,Urine 1 /hpf (0-5); Squamous Epithelial Cell,Urine 5 /hpf (0-4); Urobilinogen,Urine <2.0 mg/dL (<2.0); WBC,Urine 12 /hpf (0-5)
[2024-07-14 04:08] LABS: Specific Gravity,Urine >1.050 (1.001-1.035)
[2024-07-14] MEDS: HYDROmorphone 1 MG/ML 1 ML SYRINGE IVP STA (05:43)
--- NOTE | 2024-07-14 06:55 | CT ---
EXAMINATION TYPE: CT abdomen pelvis w con DATE OF EXAM: 07/14/2024 HISTORY: SBO versus ileus. History of gastric sleeve surgery in September with right upper quadrant pain, diminished appetite, and nausea Automated Exposure Control for Dose Reduction was Utilized. CONTRAST: CT scan of the abdomen and pelvis is performed with oral and with IV Contrast, patient injected with 100 mL of Isovue 300. COMPARISON: Prior CT June 14, 2024 FINDINGS: LUNG BASES: No significant abnormality is appreciated. LIVER/GB: Cholecystectomy clips are redemonstrated. PANCREAS: No significant abnormality is seen. SPLEEN: No significant abnormality is seen. ADRENALS: No significant abnormality is seen. KIDNEYS: No significant abnormality is seen. BOWEL: Evaluation of bowel is suboptimal as oral contrast only extends in left-sided bowel loops and patient has virtually no internal fat. Surgical changes in the stomach are redemonstrated. There is s ome oral contrast in small sized hiatal hernia present study. Remnant stomach is fluid-filled without significant dilatation. Slightly prominent contrast filled small bowel loops are seen in the left pe lvis and lower abdomen. There are slightly prominent fluid and fecal filled small bowel loops in the right pelvis. No greater than 3.0 cm dilatation is identified. Fecal material is seen in nondistended colon. Moderate colonic fecal prominence in the right and transverse colon. UTERUS/ADNEXA: Slightly retroverted uterus. LYMPH NODES: No greater than 1cm abdominal or pelvic lymph nodes are appreciated. OSSEOUS STRUCTURES: Small disc herniation posterior L1-L2 level sagittal image 66 is redemonstrated. OTHER: No significant additional abnormality is seen. IMPRESSION: Findings are consistent with delayed passage of ingested material. I favor ileus versus p artial bowel obstruction. There is mild to moderate proximal colonic fecal stasis or constipation. [facility], , 07/14/2024 6:53 AM
[2024-07-14] MEDS ORDERED: NALOXONE 0.4 MG/ML 1 ML VIAL IV PRN (07:02)
[2024-07-14] MEDS: SODIUM CHLORIDE 0.9% 1,000 ML IV SCH ×2 (07:50→14:27)
[2024-07-14] MEDS: HYDROmorphone 0.5 MG/0.5 ML SYRINGE IVP PRN (10:26)
[2024-07-14] MEDS: ALBUTEROL NEBULIZED 2.5 MG/3 ML INHALATION PRN (13:15)
[2024-07-14] MEDS ORDERED: ONDANSETRON 4 MG/2 ML VIAL IVP PRN (13:31)
--- NOTE | 2024-07-14 13:34 | P.HPIM ---
History of Present Illness H&P Date: 07/14/24 Chief Complaint: abdominal pain Elana is a 29 YO F with a pmhx of bariatric surgery and recent gastrojejunal ulcer. The patient presents to the hospital earlier today as a transfer from outside hospital. She had CT scan that was concerning for small bowel obstruction. She reports that she has had very poor oral intake over the past few days. She expresses that her last bowel movement was several days ago. She reports that she was unable to pass any flatus however did report she did have some flatus this morning. She reports that this abdominal pain is more epigastric and discomforting. She reports that the pain feels different than her pain she had on June. When she had presented to the hospital she was hemodynamically stable afebrile and was 100% on room air. Lab work had revealed a white blood cell count 10.6 CMP was unremarkable urinalysis was negative. She had a CT abdomen pelvis which revealed delayed passage of ingested material ileus versus small bowel obstruction. Currently at this time she reports she does not have any significant nausea Of note she had a Joe-en-Y surgery in August 2023. In addition the patient had intractable epigastric pain where she underwent lysis of adhesions and upper endoscopy. She had adhesions creating intussception at jejunojejunostomy. Review of Systems All systems: negative Past Medical History Past Medical History: Asthma, GERD/Reflux Additional Past Medical History / Comment(s): "I've been having pressure upper abd area with nausea and vomiting." Severe GERD. Hx tachycardia at age 18. Seasonal allergies, mild asthma. 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 Past Anesthesia/Blood Transfusion Reactions: No Reported Reaction, Postoperative Nausea & Vomiting (PONV) Additional Past Anesthesia/Blood Transfusion Reaction / Comment(s): No hx of blood transfusion. "I'm spacey when I first wake up." "I had a hard time waking up from the anesthesia." Past Psychological History: No Psychological Hx Reported Additional Psychological History / Comment(s): pt denies hx Smoking Status: Never smoker Past Alcohol Use History: None Reported Additional Past Alcohol Use History / Comment(s): Quit vaping quit Jul 2023. Past Drug Use History: Marijuana Additional Drug Use History / Comment(s): THC use occasionally. Usually vape Marijuana. - Past Family History Father History Unknown: Yes Family Medical History: No Reported History Additional Family Medical History / Comment(s): Bangura's esophagus. Mother Family Medical History: No Reported History Additional Family Medical History / Comment(s): Bangura's esophagus. Medications and Allergies Home Medications Medication Instructions Recorded Confirmed Type Albuterol Inhaler [Ventolin Hfa 2 puff INHALATION RT-QID PRN 10/28/22 07/14/24 History Inhaler] Acetaminophen Tab [Tylenol Tab] 1,000 mg PO Q6HR PRN #30 tablet 06/22/24 07/14/24 Rx Fluticasone Propion/Salmeterol 1 puff INHALATION RT-BID 07/14/24 07/14/24 History [Advair 100-50 Diskus] Midodrine HCl [ProAmantine] 2.5 mg PO BID-W/MEALS 07/14/24 07/14/24 History Omeprazole [PriLOSEC] 40 mg PO BID 07/14/24 07/14/24 History Simethicone Chew [Mylicon Chew] 80 mg PO Q6H PRN 07/14/24 07/14/24 History Sucralfate [Carafate] 1 gm PO ACHS 07/14/24 07/14/24 History Allergies Allergy/AdvReac Type Severity Reaction Status Date / Time fluoxetine [From Prozac] Allergy Rash/Hives Verified 07/14/24 11:52 ibuprofen Allergy Rash/Hives Verified 07/14/24 11:52 naproxen Allergy Rash/Hives Verified 07/14/24 11:52 NSAIDS (Non-Steroidal Allergy Rash/Hives Verified 07/14/24 11:52 Anti-Inflamma Physical Exam Vitals: Vital Signs Temp Pulse Resp BP Pulse Ox 07/14/24 13:15 84 07/14/24 10:20 82 18 102/63 100 07/14/24 08:25 98.4 F 67 18 112/68 97 07/14/24 05:41 70 18 104/70 99 07/14/24 02:10 98.6 F 89 19 114/73 99 Intake and Output 07/13/24 07/14/24 07/14/24 22:59 06:59 14:59 Other: Weight 50.802 kg General: non toxic, no distress, male, pleasant Derm: warm, dry Head: atraumatic, normocephalic, symmetric Eyes: EOMI, no lid lag, anicteric sclera, pupils equal round reactive to light ENT: Nose and ears atraumatic, no thrush, no pharyngeal erythema Neck: No thyromegaly, no cervical lymphadenopathy, trachea midline, supple Mouth: no lip lesion, mucus membranes moist Cardiovascular: S1S2 reg, no murmur, positive posterior tibial pulse bilateral, no edema, capillary refill less than 2 seconds Lungs: clear to ascultation bilateral, no ronchi, no rales, no wheeze, no accessory muscle use Abdominal: soft, nontender to palpation, no guarding. There are prior surgical incision sites noted Ext: no gross muscle atrophy, muscle strength muscle strength 5 out of 5 in all 4 extremities, no contractures Neuro: All extremity spontaneously Psych: Alert, oriented, appropriate affect Results CBC & Chem 7: 07/14/24 02:47 07/14/24 02:47 Labs: Abnormal Lab Results - Last 24 Hours (Table) 07/14/24 07/14/24 Range/Units 02:47 03:13 BUN 18 H (7-17) mg/dL AST 80 H (14-36) U/L ALT 37 H (4-34) U/L Total Protein 6.2 L (6.3-8.2) g/dL Ur Specific [place] >1.050 H (1.001-1.035) Urine Protein Trace H (Negative) Urine Ketones Trace H (Negative) Ur Leukocyte Esterase Small H (Negative) Urine WBC 12 H (0-5) /hpf Ur Squamous Epith Cells 5 H (0-4) /hpf Urine Bacteria Rare H (None) /hpf Urine Mucus Rare H (None) /hpf Assessment and Plan Assessment: #) Epigastric abdominal pain. partial SBO vs ileus. She is nausea free at this time. ok to maintain off NGT. continue strict NPO. IVF with 0.9 at 75 cc/hr. serial abdominal exams #) Asthma, stable. continue symbicort inhaler #) Hx of gastrojejunal ulcer. add iv protonix 40 mg BID #) Hx of gastric bypass in 08/2023 Dispo: med/surge Check urine
[2024-07-14] MEDS: PANTOPRAZOLE 40 MG/10 ML VIAL IVP SCH (14:27)
[2024-07-14] MEDS: SYMBICORT 80-4.5 MCG INHALER INHALATION SCH (20:19)
--- NOTE | 2024-07-15 00:04 | P.CON ---
Consult Note - . Consult date: 07/14/24 Assessment/Plan:: The patient presents to the hospital earlier today as a transfer from outside hospital. She had CT scan that was concerning for partial small bowel obstruction versus possible ileus. The CT-AP is also significant for constipation. She reports that she has had very poor oral intake over the past few days. She expresses that her last bowel movement was several days ago. She is passing gas. She reports that this abdominal pain is more epigastric and discomforting. She reports that the pain feels different than her pain she had on June. Of note, patient has a history of RNY Gastric Bypass. She also later underwent a Diagnostic Laparoscopy with ELIDA. Review of Systems All systems: negative Past Medical History Past Medical History: Asthma, GERD/Reflux Additional Past Medical History / Comment(s): "I've been having pressure upper abd area with nausea and vomiting." Severe GERD. Hx tachycardia at age 18. Seasonal allergies, mild asthma. 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 Past Anesthesia/Blood Transfusion Reactions: No Reported Reaction, Postoperative Nausea & Vomiting (PONV) Additional Past Anesthesia/Blood Transfusion Reaction / Comment(s): No hx of blood transfusion. "I'm spacey when I first wake up." "I had a hard time waking up from the anesthesia." Past Psychological History: No Psychological Hx Reported Additional Psychological History / Comment(s): pt denies hx Smoking Status: Never smoker Past Alcohol Use History: None Reported Additional Past Alcohol Use History / Comment(s): Quit vaping quit Jul 2023. Past Drug Use History: Marijuana Additional Drug Use History / Comment(s): THC use occasionally. Usually vape Marijuana. - Past Family History Father History Unknown: Yes Family Medical History: No Reported History Additional Family Medical History / Comment(s): Bangura's esophagus. Mother Family Medical History: No Reported History Additional Family Medical History / Comment(s): Bangura's esophagus. Physical Exam General: non toxic, no distress, male, pleasant Derm: warm, dry Head: atraumatic, normocephalic, symmetric Eyes: EOMI, no lid lag, anicteric sclera, pupils equal round reactive to light ENT: Nose and ears atraumatic, no thrush, no pharyngeal erythema Neck: No thyromegaly, no cervical lymphadenopathy, trachea midline, supple Mouth: no lip lesion, mucus membranes moist Cardiovascular: S1S2 reg, no murmur, positive posterior tibial pulse bilateral, no edema, capillary refill less than 2 seconds Lungs: clear to ascultation bilateral, no ronchi, no rales, no wheeze, no accessory muscle use Abdominal: soft, nontender to palpation, no guarding. There are prior surgical incision sites noted Ext: no gross muscle atrophy, muscle strength muscle strength 5 out of 5 in all 4 extremities, no contractures Neuro: All extremity spontaneously Psych: Alert, oriented, appropriate affect 29 Female with History of RNY Gastric Bypass presents with PSBO vs Ileus and Constipation -NPO -If patient continues to pass flatus will start CLD in AM -IV fluids -Pain and Nausea Control -If epigastric pain does not improve patient may benefit from EGD to evaluate for marginal ulcer. -Dulcolax for Constipation Nam Lorenz DO [facility] [phone]
[2024-07-15 07:52] VITALS: BP 95/61; PULSE 84; RESP 18; TEMP 98.7
[2024-07-15 08:49] LABS: Blood Urea Nitrogen 12.6 mg/dL (9.0-27.0); Calcium 8.5 mg/dL (8.7-10.3); Carbon Dioxide 22.5 mmol/L (21.6-31.8); Chloride 109 mmol/L (96-109); Glucose 65 mg/dL (70-110); Potassium 4.8 mmol/L (3.5-5.5); Sodium 141 mmol/L (135-145)
[2024-07-15 09:10] LABS: Basophils # (A) 0.07 X 10*3/uL (0.00-0.10); Basophils % (A) 1.2 %; Eosinophils # (A) 0.74 X 10*3/uL (0.04-0.35); Eosinophils % (A) 12.6 %; HCT 35.9 % (37.2-46.3); HGB 11.2 g/dL (12.0-15.0); Lymphocytes % (A) 32.3 %; MCH 27.5 pg (27.0-32.0); MCHC 31.2 g/dL (32.0-37.0); Mean Platelet Volume 10.5 FL (9.5-12.2); Monocytes # (A) 0.43 X 10*3/uL (0.20-1.00); Monocytes % (A) 7.3 %; NRBC Per 100 WBC 0 X 10*3/uL (0.00-0.01); Neutrophils # (A) 2.72 X 10*3/uL (1.80-7.70); Neutrophils % (A) 46.1 %; Platelet Count 245 X 10*3/uL (140-440); RBC 4.08 X 10*6/uL (4.10-5.20); RDW 13.7 % (11.5-14.5); WBC 5.89 X 10*3/uL (4.50-10.00)
[2024-07-15] MEDS: ENOXAPARIN 40 MG/0.4 ML SYRINGE SQ SCH (09:18)
[2024-07-15] MEDS: bisacodyL 10 MG SUPP RECTAL SCH (09:19)
--- NOTE | 2024-07-15 12:09 | P.DS ---
Providers Date of admission: 07/14/24 07:02 Expected date of discharge: 07/15/24 Attending physician: Nam Lorenz, Consults: 07/14/24 07:06 Consult Physician Routine Consulting Provider: Renae Santizo Consult Reason/Comments: medicine consult Do you want consulting provider notified?: Yes 07/14/24 12:57 Consult Physician Routine Consulting Provider: Nam Lorenz Consult Reason/Comments: abdominal pain Do you want consulting provider notified?: Yes Primary care physician: Shannan Gutierrez Sal Hospital Course: 29 YO F with a pmhx of a Joe-en-Y surgery in August 2023 and recent gastrojejunal ulcer. The patient presents to the hospital as a transfer from outside hospital. She had CT scan that was concerning for small bowel obstruction. She reports that she has had very poor oral intake over the past few days. Last bowel movement was several days ago. She reports that she was unable to pass any flatus however did report she did have some flatus this m orning. She reports that this abdominal pain is more epigastric and discomforting. She reports that the pain feels different than her pain she had on June. Past history also include lysis of adhesions and upper endoscopy. She had adhesions creating intussception at jejunojejunostomy. When she had presented to the hospital she was hemodynamically stable afebrile and was 100% on room air. Lab work had revealed a white blood cell count 10.6 CMP was unremarkable urinalysis was negative. She had a CT abdomen pelvis which revealed delayed passage of ingested material, ileus versus small bowel obstruction. She was admitted, IV fluids started and she was NPO. Seen by surgery service. The next day she had large BM. She was started on diet, tolerated. Will be discharged home in a stable condition. Time for discharge 36 min She was seen and examined on the day of discharge. Patient Condition at Discharge: Fair Plan - Discharge Summary New Discharge Prescriptions: Continue Albuterol Inhaler [Ventolin Hfa Inhaler] 2 puff INHALATION RT-QID PRN PRN Reason: Shortness Of Breath Fluticasone Propion/Salmeterol [Advair 100-50 Diskus] 1 puff INHALATION RT- BID Midodrine HCl [ProAmantine] 2.5 mg PO BID-W/MEALS Sucralfate [Carafate] 1 gm PO ACHS Acetaminophen Tab [Tylenol] 1,000 mg PO Q6HR PRN #30 tablet PRN Reason: Pain Simethicone Chew [Mylicon Chew] 80 mg PO Q6H PRN PRN Reason: Indigestion Omeprazole [PriLOSEC] 40 mg PO BID Discharge Medication List Albuterol Inhaler [Ventolin Hfa Inhaler] 2 puff INHALATION RT-QID PRN 10/28/22 [History] Acetaminophen Tab [Tylenol] 1,000 mg PO Q6HR PRN #30 tablet 06/22/24 [Rx] Fluticasone Propion/Salmeterol [Advair 100-50 Diskus] 1 puff INHALATION RT-BID 07/14/24 [History] Midodrine HCl [ProAmantine] 2.5 mg PO BID-W/MEALS 07/14/24 [History] Omeprazole [PriLOSEC] 40 mg PO BID 07/14/24 [History] Simethicone Chew [Mylicon Chew] 80 mg PO Q6H PRN 07/14/24 [History] Sucralfate [Carafate] 1 gm PO ACHS 07/14/24 [History] Follow up Appointment(s)/Referral(s): Shannan Huang MD [Primary Care Provider] - As Needed Patient Instructions/Handouts: Ileus (DC) Discharge Disposition: HOME SELF-CARE
--- NOTE | 2024-07-15 16:21 | P.PN ---
Subjective Progress Note Date: 07/15/24 CHIEF COMPLAINT: Abdominal pain HISTORY OF PRESENT ILLNESS: The patient is a 29-year-old female transferred from outside facility for abnormal imaging study for bowel obstruction. Patient did have repeat CT scan here at the facility demonstrated mostly constipation. Patient had been placed on bowel regimen and had a large bowel movement and passing flatus. She reports all of her mid to lower abdominal pain had completely resolved. Patient was already ambulating in the hallway at the time of my assessment. She has pre-existing history of ulcers. ROS: No reports of nausea and vomiting. No fevers or chills. No new chest pain. No productive sputum PHYSICAL EXAM: VITAL SIGNS: Reviewed CONSTITUTIONAL: Well developed and in no acute distress. EYES: Conjuctivae without sclera icterus. Extraocular movements grossly intact. HEAD, EARS, NOSE, THROAT: Moist buccal mucosa. Head is atraumatic, normocephalic. Hears conversational speech. No nasal drainage. RESPIRATORY: Non-labored respirations and equal bilateral excursions. CARDIOVASCULAR: Palpable 2+ radial pulses. ABDOMEN: Nontender. MUSCULOSKELETAL: No gross deformity of the lower extremities noted. No clubbing. No cyanosis. SKIN: Good skin turgor. Well perfused. NEUROLOGIC: Cranial nerves II through XII grossly intact. No focal or lateralizing signs. PSYCH: Appropriate affect. Alert and oriented to person, place and time. CLINICAL LABS: Reviewed. WBC normal. STUDIES: CT of the abdomen pelvis upon this admission reviewed in detail demonstrating no evidence of mesenteric swirl. No small bowel obstruction or small bowel dilatation. Moderate fecal retention involving the ascending transverse colon including descending colon and rectum. This is my independent interpretation. REPORT: CT of the abdomen pelvis was reports for ileus. ASSESSMENT: 1. Ileus 2. Lower abdominal pain 3. History of gastric ulcers PLAN: 1. Clinically, patient is doing well and stable for discharge. 2. Recommend outpatient management and follow-up for gastric ulcers. Objective - Vital Signs Vital signs: Vital Signs Temp 98.7 F 07/15/24 07:12 Pulse 84 07/15/24 07:12 Resp 18 07/15/24 07:12 BP 95/61 07/15/24 07:12 Pulse Ox 98 07/15/24 07:12 FiO2 Intake & Output 07/14/24 07/15/24 07/15/24 18:59 06:59 18:59 Intake Total 0 1490 Balance 0 1490 Weight 50.802 kg Intake: Intake, IV Titration 900 Amount Sodium Chloride 0.9% 1, 900 000 ml @ 75 mls/hr IV . [id number] ISIDRO Rx#:[id number] Oral 0 590 Other: Voiding Method Toilet # Voids 2 2 - Labs CBC & Chem 7: 07/15/24 06:01 07/15/24 06:01 Labs: Abnormal Lab Results - Last 24 Hours (Table) 07/15/24 07/15/24 Range/Units 06:01 06:01 RBC 4.08 L (4.10-5.20) X 10*6/uL Hgb 11.2 L (12.0-15.0) g/dL Hct 35.9 L (37.2-46.3) % MCHC 31.2 L (32.0-37.0) g/dL Eosinophils # 0.74 H (0.04-0.35) X 10*3/uL Glucose 65 L (70-110) mg/dL Calcium 8.5 L (8.7-10.3) mg/dL
== END 2024-07-15 12:00 | disposition home or self-care (01) | DRG 252 ==
LOC: SUPCPDRO 02:08 → EC 02:08 → 4SSUR 07:02 → 5NMEDONC 17:08
PROVIDERS: ADMIT Surgery; ATTEND Surgery
DX: K91.89 Other postprocedural complications and disorders of digestive system (principal); K56.7 Ileus, unspecified; J45.909 Unspecified asthma, uncomplicated; K21.9 Gastro-esophageal reflux disease without esophagitis; Z98.84 Bariatric surgery status; Z87.11 Personal history of peptic ulcer disease; Z88.5 Allergy status to narcotic agent; Z88.6 Allergy status to analgesic agent; Z90.49 Acquired absence of other specified parts of digestive tract; Y84.8 Other medical procedures as the cause of abnormal reaction of the patient, or of later complication, without mention of misadventure at the time of the procedure
CPT/HCPCS: 36415; 74177; 80048; 80053; 81001; 81025; 85025; 94640; 96361; 96374; 96375; 96376; 99285